=== PATIENT | female | born 1965 | race Caucasian/White ===

== ENCOUNTER 2018-04-20 20:52 | Emergency (ER) ==
[2018-04-20 22:27] LABS: ABSOLUTE BASOPHILS # (AUTO) 0.1 10^3/uL (0.0-0.2); ABSOLUTE EOSINOPHILS # (AUTO) 0.3 10^3/uL (0.0-0.6); ABSOLUTE LYMPHOCYTES (AUTO) 1.8 10^3/uL (0.5-4.7); ABSOLUTE MONOCYTES (AUTO) 0.6 10^3/uL (0.1-1.4); EOSINOPHILS % (AUTO) 3.8 % (0-6); HEMATOCRIT 33.8 % (36.0-47.0); HEMOGLOBIN 10.7 g/dL (12.0-15.5); LYMPHOCYTES % (AUTO) 22.8 % (13-45); MEAN CORPUSCULAR HEMOGLOBIN 21.7 pg (27.0-33.4); MEAN CORPUSCULAR HGB CONC 31.7 g/dL (32.0-36.0); MEAN CORPUSCULAR VOLUME 68 fl (80-97); MONOCYTES % (AUTO) 8.3 % (3-13); PLATELET COUNT 376 10^3/uL (150-450); RED BLOOD COUNT 4.95 10^6/uL (3.72-5.28); RED CELL DISTRIBUTION WIDTH 17.4 % (11.5-14.0); SEGMENTED NEUTROPHILS % (AUTO) 64.1 % (42-78); TOTAL CELLS COUNTED % (AUTO) 100 %; WHITE BLOOD COUNT 7.8 10^3/uL (4.0-10.5)
[2018-04-20 22:45] LABS: ALANINE AMINOTRANSFERASE 23 U/L (9-52); ALBUMIN 3.7 g/dL (3.5-5.0); ALKALINE PHOSPHATASE 64 U/L (38-126); ANION GAP 9 (5-19); ASPARTATE AMINO TRANSFERASE 15 U/L (14-36); BILIRUBIN,DIRECT 0.2 mg/dL (0.0-0.4); BILIRUBIN,TOTAL 0.2 mg/dL (0.2-1.3); BLOOD UREA NITROGEN 20 mg/dL (7-20); CALCIUM 9.6 mg/dL (8.4-10.2); CARBON DIOXIDE 31 mmol/L (22-30); CHLORIDE 107 mmol/L (98-107); GLUCOSE 81 mg/dL (75-110); LIPASE 218.8 U/L (23-300); POTASSIUM 4.1 mmol/L (3.6-5.0); SODIUM 147.2 mmol/L (137-145); TOTAL PROTEIN 6.9 g/dL (6.3-8.2)
== END 2018-04-20 22:15 | disposition left against medical advice (07) ==
LOC: ER 20:52
DX: Z53.21 Procedure and treatment not carried out due to patient leaving prior to being seen by health care provider (principal)
CPT/HCPCS: 36415; 80053; 83690; 85025

== ENCOUNTER 2018-04-23 23:14 | Emergency (ER) | payer SELFPAY ==
[2018-04-24] MEDS ORDERED: MAG HYDROX/AL HYDROX/SIMETH SUSP 30 ML UDCUP PO ONE (02:25)
[2018-04-24] MEDS ORDERED: METOCLOPRAMIDE HCL ORAL SOLN 10 MG/10 ML UDCUP PO ONE (02:25)
[2018-04-24] MEDS ORDERED: FAMOTIDINE 20 MG TABLET PO ONE (02:25)
[2018-04-24] MEDS ORDERED: LIDOCAINE 2% VISCOUS SOLN 20 ML UDCUP PO ONE (02:25)
--- NOTE | 2018-04-24 02:26 | ER Document Report ---
ED General - General Chief Complaint: Abdominal Pain Stated Complaint: ABDOMINAL PAIN Time Seen by Provider: 04/24/18 01:36 Notes: Patient is a 52-year-old female with a past medical history of hypertension, recent ventral hernia repair who presents with several days of progressively worsening upper abdominal pain. She describes this as a burning, aching epigastric abdominal pain worsened by eating. She notes associated nausea and vomiting when the pain becomes severe. Nothing seems to improve the pain other than avoiding food. She denies a long-standing history of similar symptoms in the past. She has not seen her primary doctor or followed up with her surgeon regarding these concerns. She has been able to tolerate fluids without difficulty. She continues to have bowel movements. No fever or constitutional symptoms. TRAVEL OUTSIDE OF THE [place] IN LAST 30 DAYS: No - Related Data Allergies/Adverse Reactions: No Known Allergies Allergy (Unverified 04/20/18 20:55) Past Medical History - General Information source: Patient - Social History Smoking Status: Former Smoker Chew tobacco use (# tins/day): No Frequency of alcohol use: None Drug Abuse: None Lives with: Family Family History: Reviewed & Not Pertinent Patient has suicidal ideation: No Patient has homicidal ideation: No - Past Medical History Cardiac Medical History: Reports: Hx Hypertension Renal/ Medical History: Denies: Hx Peritoneal Dialysis Past Surgical History: Reports: Hx Abdominal Surgery - hernia repair 03/30/18 Review of Systems - Review of Systems Notes: Constitutional: Negative for fever. HENT: Negative for sore throat. Eyes: Negative for visual changes. Cardiovascular: Negative for chest pain. Respiratory: Negative for shortness of breath. Gastrointestinal: Positive for abdominal pain and vomiting Genitourinary: Negative for dysuria. Musculoskeletal: Negative for back pain. Skin: Negative for rash. Neurological: Negative for headaches, weakness or numbness. 10 point ROS negative except as marked above and in HPI. Physical Exam - Vital signs Vitals: Temp Pulse Resp BP Pulse Ox 98.4 F 75 18 229/107 H 98 04/23/18 23:49 04/23/18 23:49 04/23/18 23:49 04/23/18 23:49 04/23/18 23:49 Interpretation: Hypertensive - Patient did not take her home medications today Notes: PHYSICAL EXAMINATION: GENERAL: Well-appearing, well-nourished and in no acute distress. HEAD: Atraumatic, normocephalic. EYES: Pupils equal round and reactive to light, extraocular movements intact, sclera anicteric, conjunctiva are normal. ENT: nares patent, oropharynx clear without exudates. Moist mucous membranes. NECK: Normal range of motion, supple without lymphadenopathy LUNGS: Breath sounds clear to auscultation bilaterally and equal. No wheezes rales or rhonchi. HEART: Regular rate and rhythm without murmurs ABDOMEN: Soft, mild epigastric abdominal tenderness to palpation but no other localized areas of tenderness, normoactive bowel sounds. No guarding, no rebound. No masses appreciated. EXTREMITIES: Normal range of motion, no pitting or edema. No cyanosis. NEUROLOGICAL: No focal neurological deficits. Moves all extremities spontaneously and on command. PSYCH: Normal mood, normal affect. SKIN: Warm, Dry, normal turgor, well-healing low midline surgical incision Course - Re-evaluation Re-evalutation: 04/24/18 02:26 Patient presents with epigastric abdominal pain with associated reflux symptoms most consistent with likely gastritis. Patient has no focal abdominal tenderness on examination other than to the epigastrium. KUB without evidence of bowel obstruction. Right upper quadrant ultrasound does not demonstrate any evidence of acute cholecystitis or cholelithiasis and although the patient does not recall the history, it appears that she is status post cholecystectomy. Lipase is normal. No LFT changes. Based on history and exam, I do not suspect ACS, pulmonary embolus, SBO, mesenteric ischemia, acute pancreatitis, biliary pathology, or an abdominal aortic dissection. Patient has had improvement of symptoms here with a GI cocktail. At this time will discharge with return precautions and follow-up recommendations. Verbal discharge instructions given a the bedside and opportunity for questions given. Medication warnings reviewed. Patient is in agreement with this plan and has verbalized understanding of return precautions and the need for primary care follow-up in the next 24-72 hours. - Vital Signs Vital signs: Temp Pulse Resp BP Pulse Ox 97.9 F 70 16 219/110 H 96 04/24/18 03:34 04/24/18 03:34 04/24/18 03:34 04/24/18 03:34 04/24/18 03:34 - Laboratory Result Diagrams: 04/24/18 02:08 04/24/18 02:08 Laboratory results interpreted by me: 04/24/18 04/24/18 02:08 02:08 Hgb 11.2 L Hct 35.5 L MCV 68 L MCH 21.5 L MCHC 31.6 L RDW 17.2 H Sodium 146.3 H Est GFR (Non-Af Amer) 55 L - Diagnostic Test Radiology reviewed: Image reviewed, Reports reviewed Radiology results interpreted by me: 04/24/18 03:56 Abdominal 2 view: No evidence of perforation or obstruction Discharge - Discharge Clinical Impression: Essential hypertension, Upper abdominal pain Nausea and vomiting Qualifiers: Vomiting type: unspecified Vomiting Intractability: non-intractable Qualified Code(s): R11.2 - Nausea with vomiting, unspecified Condition: Good Disposition: HOME, SELF-CARE Additional Instructions: Your symptoms appear to be most consistent with stomach or upper intestinal irritation. Please begin taking famotidine 40 mg in the morning and 40 mg at night. This medicine can be purchased directly [id number]. You may also take medicine such as Pepto-Bismol or Tums to assist with your pain. Please return to emergency department immediately if you have worsening of your pain, shortness of breath, vomiting, become unable to exert yourself due to pain or difficulty breathing, you pass out, or have any pain that radiates into your arms, jaw, or back. Please also return if you have any additional symptoms that are concerning to you. As we have discussed, the most important thing is lifestyle changes. You need to avoid smoking, sodas, tea, coffee, alcohol, spicy foods, and acidic foods such as citrus fruits, tomato based products, berries, and most fruit juices. Prescriptions: Sucralfate [Carafate 1 gm Tablet] 1 gm PO ACHS #120 tablet
[2018-04-24 02:32] LABS: ABSOLUTE BASOPHILS # (AUTO) 0.1 10^3/uL (0.0-0.2); ABSOLUTE EOSINOPHILS # (AUTO) 0.1 10^3/uL (0.0-0.6); ABSOLUTE LYMPHOCYTES (AUTO) 1.6 10^3/uL (0.5-4.7); ABSOLUTE MONOCYTES (AUTO) 0.6 10^3/uL (0.1-1.4); ABSOLUTE NEUT (AUTO) 6.5 10^3/uL (1.7-8.2); BASOPHILS % (AUTO) 0.8 % (0-2); EOSINOPHILS % (AUTO) 1.5 % (0-6); HEMATOCRIT 35.5 % (36.0-47.0); HEMOGLOBIN 11.2 g/dL (12.0-15.5); LYMPHOCYTES % (AUTO) 17.7 % (13-45); MEAN CORPUSCULAR HEMOGLOBIN 21.5 pg (27.0-33.4); MEAN CORPUSCULAR HGB CONC 31.6 g/dL (32.0-36.0); MEAN CORPUSCULAR VOLUME 68 fl (80-97); MONOCYTES % (AUTO) 7.2 % (3-13); PLATELET COUNT 339 10^3/uL (150-450); RED BLOOD COUNT 5.21 10^6/uL (3.72-5.28); RED CELL DISTRIBUTION WIDTH 17.2 % (11.5-14.0); SEGMENTED NEUTROPHILS % (AUTO) 72.8 % (42-78); TOTAL CELLS COUNTED % (AUTO) 100 %; WHITE BLOOD COUNT 8.9 10^3/uL (4.0-10.5)
[2018-04-24 02:43] LABS: APPEARANCE,URINE CLEAR; BILIRUBIN,URINE NEGATIVE (NEGATIVE); COLOR,URINE YELLOW; GLUCOSE, URINE NEGATIVE (NEGATIVE); KETONES,URINE NEGATIVE (NEGATIVE); LEUKOCYTE ESTERASE,URINE NEGATIVE (NEGATIVE); NITRITE,URINE NEGATIVE (NEGATIVE); PROTEIN,URINE NEGATIVE (NEGATIVE); URINE SPECIFIC GRAVITY 1.014; UROBILINOGEN,URINE NEGATIVE mg/dL (<2.0)
[2018-04-24 02:52] LABS: NEONATAL BILIRUBIN RESULT 0.1 mg/dL (0.1-1.1)
--- NOTE | 2018-04-24 03:09 | RADIOLOGY REPORT (SQ) ---
EXAM DESCRIPTION: XR ABDOMEN 2 VIEWS SUPINE ERECT COMPLETED DATE/TME: 04/24/2018 02:25 CLINICAL HISTORY: Upper abdominal pain. COMPARISON: None. FINDINGS: Upright and supine views of the abdomen. Bowel: No dilated loops of large or small bowel. Peritoneum: No free intraperitoneal air identified. Solid organs: No definite organomegaly. Calcifications: No abnormal calcifications. Bones: No acute osseous abnormalities. Degenerative change of the spine. Other:Prior cholecystectomy. Postoperative change in the left abdomen. IMPRESSION: Nonobstructive bowel gas pattern.
[2018-04-24 03:16] LABS: ALANINE AMINOTRANSFERASE 22 U/L (9-52); ALBUMIN 3.9 g/dL (3.5-5.0); ALKALINE PHOSPHATASE 64 U/L (38-126); ANION GAP 13 (5-19); ASPARTATE AMINO TRANSFERASE 18 U/L (14-36); BILIRUBIN,DIRECT 0.3 mg/dL (0.0-0.4); BILIRUBIN,TOTAL 0.4 mg/dL (0.2-1.3); BLOOD UREA NITROGEN 20 mg/dL (7-20); CALCIUM 9.7 mg/dL (8.4-10.2); CARBON DIOXIDE 29 mmol/L (22-30); CHLORIDE 104 mmol/L (98-107); GLUCOSE 108 mg/dL (75-110); POTASSIUM 3.6 mmol/L (3.6-5.0); SODIUM 146.3 mmol/L (137-145); TOTAL PROTEIN 7.1 g/dL (6.3-8.2)
[2018-04-24 03:35] VITALS: BP 219/110
--- NOTE | 2018-04-24 03:54 | RADIOLOGY REPORT (SQ) ---
EXAM DESCRIPTION: US ABDOMEN LIMITED COMPLETED DATE/TME: 04/24/2018 02:35 CLINICAL HISTORY: upper abdominal pain, vomiting COMPARISON: None. TECHNIQUE: Real-time sonographic images of the right upper abdomen were obtained using a curved multihertz transducer. FINDINGS: Pancreas: The visualized portions of the pancreas are unremarkable. Vascular: The visualized portions of the aorta and IVC are unremarkable. Liver: The liver has normal contour and echogenicity. Hepatopedal flow in the portal vein confirmed with color and spectral Doppler imaging.. The common bile duct measures 0.5 cm. Gallbladder: Prior cholecystectomy. Tiny amount of free fluid in the gallbladder fossa. Right Kidney: The right kidney measures 10.3 cm in length. No hydronephrosis, solid renal mass, or shadowing calculi. IMPRESSION: 1. Prior cholecystectomy. Tiny amount of fluid in the gallbladder fossa.
[2018-04-24] MEDS ORDERED: ONDANSETRON ODT 4 MG TAB (6 TAB/ER DISP) PO PRN (03:57)
== END 2018-04-24 04:20 | disposition home or self-care (01) ==
LOC: ER 23:14
DX: R11.2 Nausea with vomiting, unspecified (principal); R10.10 Upper abdominal pain, unspecified; I10 Essential (primary) hypertension; R10.13 Epigastric pain; Z87.891 Personal history of nicotine dependence
CPT/HCPCS: 99284; 36415; 85025; 80053; 81001; 74019; 76705; J3490

== ENCOUNTER 2018-06-26 06:33 | Emergency (ER) | payer SELFPAY ==
[2018-06-26] MEDS ORDERED: LISINOPRIL 10 MG TABLET PO ONE (07:42)
[2018-06-26 07:48] LABS: ABSOLUTE EOSINOPHILS # (AUTO) 0.2 10^3/uL (0.0-0.6); ABSOLUTE LYMPHOCYTES (AUTO) 1.9 10^3/uL (0.5-4.7); ABSOLUTE MONOCYTES (AUTO) 0.4 10^3/uL (0.1-1.4); ABSOLUTE NEUT (AUTO) 8.5 10^3/uL (1.7-8.2); BASOPHILS % (AUTO) 0.4 % (0-2); EOSINOPHILS % (AUTO) 1.7 % (0-6); HEMATOCRIT 31.7 % (36.0-47.0); HEMOGLOBIN 9.8 g/dL (12.0-15.5); INTERNATIONAL RATION (INR) 1.02; LYMPHOCYTES % (AUTO) 16.9 % (13-45); MEAN CORPUSCULAR HEMOGLOBIN 21.2 pg (27.0-33.4); MEAN CORPUSCULAR HGB CONC 30.9 g/dL (32.0-36.0); MEAN CORPUSCULAR VOLUME 69 fl (80-97); MONOCYTES % (AUTO) 3.9 % (3-13); PARTIAL THROMBOPLASTIN TIME 26.3 SEC (23.5-35.8); PLATELET COUNT 270 10^3/uL (150-450); PROTHROMBIN TIME 13.9 SEC (11.4-15.4); RED BLOOD COUNT 4.63 10^6/uL (3.72-5.28); RED CELL DISTRIBUTION WIDTH 16.7 % (11.5-14.0); SEGMENTED NEUTROPHILS % (AUTO) 77.1 % (42-78); TOTAL CELLS COUNTED % (AUTO) 100 %; WHITE BLOOD COUNT 11.1 10^3/uL (4.0-10.5)
[2018-06-26 07:59] LABS: ALANINE AMINOTRANSFERASE 16 U/L (9-52); ALBUMIN 3.3 g/dL (3.5-5.0); ALKALINE PHOSPHATASE 61 U/L (38-126); ANION GAP 11 (5-19); ASPARTATE AMINO TRANSFERASE 19 U/L (14-36); BILIRUBIN,DIRECT 0.2 mg/dL (0.0-0.4); BILIRUBIN,TOTAL 0.2 mg/dL (0.2-1.3); BLOOD UREA NITROGEN 25 mg/dL (7-20); CALCIUM 8.7 mg/dL (8.4-10.2); CARBON DIOXIDE 25 mmol/L (22-30); CHLORIDE 108 mmol/L (98-107); GLUCOSE 136 mg/dL (75-110); LIPASE 109.7 U/L (23-300); POTASSIUM 3.9 mmol/L (3.6-5.0); SODIUM 144.3 mmol/L (137-145); TOTAL PROTEIN 6.4 g/dL (6.3-8.2)
[2018-06-26] MEDS ORDERED: NORMAL SALINE 1000 ML 1,000 ML IV ONE (08:02)
[2018-06-26] MEDS ORDERED: PANTOPRAZOLE SODIUM 40 MG VIAL IV ONE (08:03)
[2018-06-26] MEDS ORDERED: PANTOPRAZOLE SODIUM 40 MG VIAL IV PRN (08:05)
--- NOTE | 2018-06-26 08:24 | ER Document Report ---
ED GI Bleed / Rectal Pain <MILLIE NEGRETE - Last Filed: 06/26/18 14:42> - General Mode of Arrival: Wheelchair Information source: Patient TRAVEL OUTSIDE OF THE [place] IN LAST 30 DAYS: No - HPI Patient complains to provider of: Bright red bld from rect. Onset: Yesterday Timing/Duration: Worse Quality of pain: No pain Pain Level: Denies Emesis description: Bright red blood Rectal bleeding: Bleeding w/o stool Rectal foreign body: No Associated symptoms: None. denies: Chest pain Exacerbated by: Denies Relieved by: Denies Similar symptoms previously: No Recently seen / treated by doctor: No <MICHAEL URBAN - Last Filed: 06/26/18 19:20> - General Chief Complaint: Rectal Bleeding Stated Complaint: VAGINAL BLEEDING Time Seen by Provider: 06/26/18 07:07 Notes: Patient presents complaining of diarrhea that started yesterday. Patient states that diarrhea worsened today. Patient states she has had 4 episodes that have all been bloody. Patient reports having a toilet full of blood at home. Patient denies any abdominal pain or fever. Patient does report feeling lightheaded. Does state that she had surgery last year for a hernia repair in the incidentally found a tumor. Patient states the tumor was benign. Patient states that she has been seeping blood rectally without having bowel movements. Patient denies any previous history of rectal bleeding. 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 denies: Fever, Recent illness EENT: No symptoms reported Cardiovascular: Lightheaded Respiratory: No symptoms reported. denies: Cough, Short of breath Gastrointestinal: Diarrhea, Nausea, Vomiting, Rectal bleeding. denies: Abdominal pain, Poor appetite Genitourinary: No symptoms reported. denies: Dysuria Female Genitourinary: No symptoms reported Musculoskeletal: No symptoms reported. denies: Back pain Skin: No symptoms reported Hematologic/Lymphatic: No symptoms reported Neurological/Psychological: No symptoms reported <MICHAEL URBAN - Last Filed: 06/26/18 19:20> Physical Exam - General General appearance: Appears well, Alert In distress: None - HEENT Head: Normocephalic, Atraumatic Eyes: Normal Conjunctiva: Normal Eyelashes: Normal Pupils: PERRL Nasal: Normal Mouth/Lips: Normal Mucous membranes: Normal Neck: Normal, Supple. No: Lymphadenopathy - Respiratory Respiratory status: No respiratory distress Chest status: Nontender Breath sounds: Normal. No: Rales, Rhonchi, Stridor, Wheezing Chest palpation: Normal - Cardiovascular Rhythm: Regular Heart sounds: S1 appreciated, S2 appreciated Murmur: No - Abdominal Inspection: Obese Distension: No distension Bowel sounds: Normal Tenderness: Nontender Organomegaly: No organomegaly - Rectal Tenderness: No Stool: Bloody, See lab result Hemorrhoids: None - Back Back: Tender - Lumbar paraspinal tenderness. No: CVA tenderness, Vertebra tenderness - Extremities General upper extremity: Normal inspection, Normal ROM General lower extremity: Normal inspection, Normal ROM - Neurological Neuro grossly intact: Yes Cognition: Normal Sam Coma Scale Eye Opening: Spontaneous Leonardo Coma Scale Verbal: Oriented Leonardo Coma Scale Motor: Obeys Commands Leonardo Coma Scale Total: 15 - Psychological Associated symptoms: Normal affect, Normal mood - Skin Skin Temperature: Warm Skin Moisture: Dry Skin Color: Normal <MICHAEL URBAN - Last Filed: 06/26/18 19:20> - Vital signs Vitals: Pulse Ox 98 06/26/18 07:05 Course - Laboratory Result Diagrams: 06/26/18 07:30 06/26/18 07:30 <MILLIE NEGRETE - Last Filed: 06/26/18 14:42> - Laboratory Result Diagrams: 06/26/18 14:39 06/26/18 07:30 - Diagnostic Test Radiology reviewed: Reports reviewed <WILMARMICHAEL White - Last Filed: 06/26/18 19:20> - Re-evaluation Re-evalutation: 06/26/18 14:42 Transport is at bedside patient is stable for transport to tertiary care facility. (MILLIE NEGRETE) 06/26/18 10:[address] Negrete regarding patient presentation, reviewed CT scan report findings. Recommends consultation with surgery. Consulted with Dr. Oates regarding patient presentation and read Dr. Oates the radiology report. Given that patient recently had abdominal surgery and may possibly be having complications, advises consultation with her surgeon. 06/26/18 10:27 Upon requestioning of patient and her family, patient's family states that her surgery was this year versus last year. Family states that it was about 3 months ago. Called and spoke with the transfer center at [facility] who states that patient did have a ventral hernia repair with bowel resection that was performed on 03/29/2018. Awaiting return call from transfer center. 06/26/18 10:[address] Mayers at [facility] who agrees to accept patient for transfer. Dr. Mayers did review patient's record and states that patient did not have a colonoscopy when she was admitted there in March for her surgery. Patient continues to be poor historian 06/26/18 14:01 Patient resting comfortably, denies complaints at this time. No additional rectal bleeding episodes. 06/26/18 15:00 Patient without any additional episodes of rectal bleeding. Vital signs stable , transport crew here to transfer pt. (MICHAEL URBAN) - Vital Signs Vital signs: Temp Pulse Resp BP Pulse Ox 16 157/87 H 100 06/26/18 14:42 06/26/18 14:42 06/26/18 14:42 - Laboratory Laboratory results interpreted by me: 06/26/18 06/26/18 06/26/18 07:30 07:30 09:23 WBC 11.1 H Hgb 9.8 L Hct 31.7 L MCV 69 L MCH 21.2 L MCHC 30.9 L RDW 16.7 H Absolute Neutrophils 8.5 H Chloride 108 H BUN 25 H Est GFR ( Amer) 57 L Est GFR (Non-Af Amer) 47 L Glucose 136 H Albumin 3.3 L Urine Blood LARGE H 06/26/18 14:39 WBC 15.4 H Hgb 9.4 L Hct 29.8 L MCV 68 L MCH 21.4 L MCHC 31.4 L RDW 16.6 H Absolute Neutrophils Chloride BUN Est GFR ( Amer) Est GFR (Non-Af Amer) Glucose Albumin Urine Blood 06/26/18 14:08 Labs- Entire Visit 06/26/18 06/26/18 06/26/18 07:30 07:30 07:30 WBC 11.1 H RBC 4.63 Hgb 9.8 L Hct 31.7 L MCV 69 L MCH 21.2 L MCHC 30.9 L RDW 16.7 H Plt Count 270 Seg Neutrophils % 77.1 Lymphocytes % 16.9 Monocytes % 3.9 Eosinophils % 1.7 Basophils % 0.4 Absolute Neutrophils 8.5 H Absolute Lymphocytes 1.9 Absolute Monocytes 0.4 Absolute Eosinophils 0.2 Absolute Basophils 0.0 PT 13.9 INR 1.02 APTT 26.3 Sodium 144.3 Potassium 3.9 Chloride 108 H Carbon Dioxide 25 Anion Gap 11 BUN 25 H Creatinine 1.19 Est GFR ( Amer) 57 L Est GFR (Non-Af Amer) 47 L Glucose 136 H Lactic Acid Calcium 8.7 Total Bilirubin 0.2 Direct Bilirubin 0.2 Neonat Total Bilirubin Not Reportable Neonat Direct Bilirubin Not Reportable Neonat Indirect Bili Not Reportable AST 19 ALT 16 Alkaline Phosphatase 61 Total Protein 6.4 Albumin 3.3 L Lipase 109.7 Serum HCG, Qual Urine Color Urine Appearance Urine pH Ur Specific [place] Urine Protein Urine Glucose (UA) Urine Ketones Urine Blood Urine Nitrite Urine Bilirubin Urine Urobilinogen Ur Leukocyte Esterase Urine WBC (Auto) Urine RBC (Auto) Squamous Epi Cells Auto Urine Mucus (Auto) Urine Ascorbic Acid Stool Occult Blood Blood Type Antibody Screen 06/26/18 06/26/18 06/26/18 08:00 08:24 08:24 WBC RBC Hgb Hct MCV MCH MCHC RDW Plt Count Seg Neutrophils % Lymphocytes % Monocytes % Eosinophils % Basophils % Absolute Neutrophils Absolute Lymphocytes Absolute Monocytes Absolute Eosinophils Absolute Basophils PT INR APTT Sodium Potassium Chloride Carbon Dioxide Anion Gap BUN Creatinine Est GFR ( Amer) Est GFR (Non-Af Amer) Glucose Lactic Acid Calcium Total Bilirubin Direct Bilirubin Neonat Total Bilirubin Neonat Direct Bilirubin Neonat Indirect Bili AST ALT Alkaline Phosphatase Total Protein Albumin Lipase Serum HCG, Qual NEGATIVE Urine Color Urine Appearance Urine pH Ur Specific [place] Urine Protein Urine Glucose (UA) Urine Ketones Urine Blood Urine Nitrite Urine Bilirubin Urine Urobilinogen Ur Leukocyte Esterase Urine WBC (Auto) Urine RBC (Auto) Squamous Epi Cells Auto Urine Mucus (Auto) Urine Ascorbic Acid Stool Occult Blood POSITIVE Blood Type B POSITIVE Antibody Screen NEGATIVE 06/26/18 06/26/18 09:23 10:57 WBC RBC Hgb Hct MCV MCH MCHC RDW Plt Count Seg Neutrophils % Lymphocytes % Monocytes % Eosinophils % Basophils % Absolute Neutrophils Absolute Lymphocytes Absolute Monocytes Absolute Eosinophils Absolute Basophils PT INR APTT Sodium Potassium Chloride Carbon Dioxide Anion Gap BUN Creatinine Est GFR ( Amer) Est GFR (Non-Af Amer) Glucose Lactic Acid 1.5 Calcium Total Bilirubin Direct Bilirubin Neonat Total Bilirubin Neonat Direct Bilirubin Neonat Indirect Bili AST ALT Alkaline Phosphatase Total Protein Albumin Lipase Serum HCG, Qual Urine Color YELLOW Urine Appearance SLIGHTLY-CLOUDY Urine pH 6.0 Ur Specific [place] 1.029 Urine Protein NEGATIVE Urine Glucose (UA) NEGATIVE Urine Ketones NEGATIVE Urine Blood LARGE H Urine Nitrite NEGATIVE Urine Bilirubin NEGATIVE Urine Urobilinogen NEGATIVE Ur Leukocyte Esterase NEGATIVE Urine WBC (Auto) 1 Urine RBC (Auto) 1 Squamous Epi Cells Auto 2 Urine Mucus (Auto) RARE Urine Ascorbic Acid NEGATIVE Stool Occult Blood Blood Type Antibody Screen (MICHAEL URBAN) Discharge <MILLIE NEGRETE - Last Filed: 06/26/18 14:42> <MICHAEL URBAN - Last Filed: 06/26/18 19:20> - Discharge Clinical Impression: Rectal bleeding Bowel obstruction Qualifiers: Intestinal obstruction type: unspecified Intestinal obstruction extent: unspecified extent Qualified Code(s): K56.609 - Unspecified intestinal obstruction, unspecified as to partial versus complete obstruction Disposition: [facility]
--- NOTE | 2018-06-26 09:36 | RADIOLOGY REPORT (SQ) ---
EXAM DESCRIPTION: CT ABD/PELVIS WITH IV ONLY COMPLETED DATE/TIME: 06/26/2018 9:03 am REASON FOR STUDY: rectal bleeding COMPARISON: Abdominal ultrasound 04/24/2018 TECHNIQUE: CT scan of the abdomen and pelvis performed using helical scanning technique with dynamic intravenous contrast injection. No oral contrast. Images reviewed with lung, soft tissue, and bone windows. Reconstructed coronal and sagittal MPR images reviewed. Delayed images for evaluation of the urinary system also acquired. All images stored on PACS. All CT scanners at this facility use dose modulation, iterative reconstruction, and/or weight based d osing when appropriate to reduce radiation dose to as low as reasonably achievable (ALARA). [facility]: Dose Right [facility]: CareDose [facility]: Dose Right [facility]: Teradose 4D [facility]: Federated Sample CONTRAST TYPE AND DOSE: contrast/concentration: Isovue 350.00 mg/ml; Total Contrast Delivered: 100.0 ml; Total Saline Delivered: 71.0 ml 100 mL Omnipaque 350- low osmolar. RENAL FUNCTION: BUN: 25 creatinine: 1.19 RADIATION DOSE: CT Rad equipment meets quality standard of care and radiation dose reduction techniq ues were employed. CTDIvol: 13.9 - 17.7 mGy. DLP: 1664 mGy-cm.. LIMITATIONS: None. FINDINGS: LOWER CHEST: Linear atelectasis of the left lingula. Visualized lung bases are otherwise clear. LIVER: Normal size. Minimal intrahepatic ductal dilatation, likely from prior cholecystectomy. Mult iple hypodensities scattered throughout the liver largest measures 2.4 x 1.5 cm. Statistically, thes e most likely represent simple cysts. SPLEEN: Normal size. No focal lesions. PANCREAS: No masses. No significant calcifications. No adjacent inflammation or peripancreatic fluid collections. Pancreatic duct not dilated. GALLBLADDER: Surgically absent. ADRENAL GLANDS: No significant masses or asymmetry. RIGHT KIDNEY AND URETER: No solid masses. No significant calcifications. No hydronephrosis or hydr oureter. LEFT KIDNEY AND URETER: 1.5 x 1.6 cm hypodense lesion of the superolateral renal cortex. Likely repr esenting a simple cyst. No solid masses. No significant calcifications. No hydronephrosis or hyd roureter. AORTA AND VESSELS: No aneurysm. Mild scattered calcified and noncalcified plaque. No dissection. Re nal arteries, SMA, celiac without stenosis. RETROPERITONEUM: No retroperitoneal adenopathy, hemorrhage or masses. BOWEL AND PERITONEAL CAVITY: Small focus of hyperattenuating material within the stomach, likely repr esenting ingested contents. Prominent loops of small bowel of the right abdomen proximal to the post surgical changes of the small bowel within the left mid abdomen. There is some heterogenous hyperatt enuating material within the dependent portion of the area of anastomosis which is unchanged on delay ed imaging, suggestive that this also represents surgical material rather than extravasated contrast. There is traumatic tapering of the small bowel distal to the anastomotic site. Colon is nondilated . Diverticula of the colon. No inflammatory changes to suggest diverticulitis. No intraperitoneal free fluid or free air. APPENDIX: Normal. PELVIS: No mass. No free fluid. Normal bladder. ABDOMINAL WALL: Slight heterogeneity of the midline anterior abdominal wall, postsurgical. BONES: Degenerative disc disease of L4-L5. OTHER: No other significant finding. IMPRESSION: 1. Prominent loops of small bowel in the right abdomen proximal to the postsurgical changes of the sm all bowel within the left mid abdomen with dramatic tapering of the small bowel distal to the anastom otic site. Findings may represent developing ileus or small bowel obstruction. 2. Slightly heterogenous, hyperattenuating material within the dependent portion of the small bowel a nastomotic site which is not change on delayed imaging suggesting that this also represents surgical material rather than extravasated contrast. Difficult to accurately assess without precontrast imagi ng. TECHNICAL DOCUMENTATION: JOB ID: [id number] Quality ID # [id number]: Final reports with documentation of one or more dose reduction techniques (e.g., Au tomated exposure control, adjustment of the mA and/or kV according to patient size, use of iterative reconstruction technique) 2010 [employer]- All Rights Reserved Reading location - IP/workstation name: [email or web address]
[2018-06-26 10:05] LABS: APPEARANCE,URINE SLIGHTLY-CLOUDY; BILIRUBIN,URINE NEGATIVE (NEGATIVE); COLOR,URINE YELLOW; GLUCOSE, URINE NEGATIVE (NEGATIVE); KETONES,URINE NEGATIVE (NEGATIVE); LEUKOCYTE ESTERASE,URINE NEGATIVE (NEGATIVE); NITRITE,URINE NEGATIVE (NEGATIVE); PROTEIN,URINE NEGATIVE (NEGATIVE); URINE SPECIFIC GRAVITY 1.029; UROBILINOGEN,URINE NEGATIVE mg/dL (<2.0)
[2018-06-26 14:54] VITALS: BP 157/87
[2018-06-26 14:56] LABS: HEMATOCRIT 29.8 % (36.0-47.0); HEMOGLOBIN 9.4 g/dL (12.0-15.5); MEAN CORPUSCULAR HEMOGLOBIN 21.4 pg (27.0-33.4); MEAN CORPUSCULAR HGB CONC 31.4 g/dL (32.0-36.0); MEAN CORPUSCULAR VOLUME 68 fl (80-97); PLATELET COUNT 276 10^3/uL (150-450); RED BLOOD COUNT 4.38 10^6/uL (3.72-5.28); RED CELL DISTRIBUTION WIDTH 16.6 % (11.5-14.0); WHITE BLOOD COUNT 15.4 10^3/uL (4.0-10.5)
--- NOTE | 2018-06-26 17:13 | EKG REPORT ---
SEVERITY:- ABNORMAL ECG - SINUS RHYTHM NONSPECIFIC T ABNORMALITIES, LATERAL LEADS : Confirmed by: Matt Zepeda MD 26-Jun-2018 17:12:21
== END 2018-06-26 15:09 | disposition short-term general hospital (02) ==
LOC: ER 06:33
DX: K62.5 Hemorrhage of anus and rectum (principal); K56.609 Unspecified intestinal obstruction, unspecified as to partial versus complete obstruction; R19.7 Diarrhea, unspecified; R42 Dizziness and giddiness; R11.2 Nausea with vomiting, unspecified; I10 Essential (primary) hypertension; Z87.891 Personal history of nicotine dependence
CPT/HCPCS: 93005; 96376; 99285; 96361; 96365; 96366; 86900; 86901; 36415; 86850; 83605; 83690; 84703; 85025; 85027; 85610; 85730; 82272; 80053; 81001; 74177; 93010; S0164; J7030

== ENCOUNTER 2018-08-27 14:45 | Emergency (ER) | payer SELFPAY ==
[2018-08-27] MEDS ORDERED: ONDANSETRON 4 MG TAB.RAPDIS PO ONE (15:09)
[2018-08-27] MEDS ORDERED: CLONIDINE HCL 0.2 MG TABLET PO ONE ×2 (15:09→15:29)
[2018-08-27] MEDS ORDERED: LIDOCAINE 2% VISCOUS SOLN 20 ML UDCUP PO ONE (15:12)
[2018-08-27] MEDS ORDERED: MAG HYDROX/AL HYDROX/SIMETH SUSP 30 ML UDCUP PO ONE (15:12)
[2018-08-27] MEDS ORDERED: SUCRALFATE SUSP 1 GM/10 ML UDCUP PO ONE (15:12)
--- NOTE | 2018-08-27 15:12 | ER Document Report ---
ED GI/ - General Chief Complaint: Abdominal Pain >50 Stated Complaint: ADMONIAL PAIN Time Seen by Provider: 08/27/18 15:05 Mode of Arrival: Ambulatory Information source: Patient Notes: Chief complaint: abdominal pain: History of complain:( obtained from----patient) 53 years old female presents today epigastric burning sensation for the last 2-3 days, loose stools yellow in color and lower abdominal cramps. Nauseous no vomiting. No fever chills. Denies any dysuria frequency or urgency. Denies any chest pain. Denies any fever chills cough or other constitutional symptoms. Onset: As above Duration: Last few days Severity: Mild to moderate Quality: Burning sensation Context: None Exacerbating factor and relieving factors: None REVIEW OF SYSTEMS: CONSTITUTIONAL : Denies fever, chills, or sweats. Denies recent illness. EENT: Denies eye, ear, throat, or mouth pain or symptoms. Denies nasal or sinus congestion or discharge. Denies throat, tongue, or mouth swelling or difficulty swallowing. CARDIOVASCULAR: Denies chest pain. Denies palpitations or racing or irregular heart beat. Denies ankle edema. RESPIRATORY: Denies cough, cold, or chest congestion. Denies shortness of breath, difficulty breathing, or wheezing. GASTROINTESTINAL: Denies distention. Denies nausea, vomiting, or diarrhea. Denies blood in vomitus, stools, or per rectum. Denies black, tarry stools. Denies constipation. GENITOURINARY: Denies difficulty urinating, painful urination, burning, frequency, blood in urine, or discharge. FEMALE GENITOURINARY: Denies vaginal bleeding, heavy or abnormal periods, irregular periods. Denies vaginal discharge or odor. MUSCULOSKELETAL: Denies back or neck pain or stiffness. Denies joint pain or swelling. SKIN: Denies rash, lesions or sores. HEMATOLOGIC : Denies easy bruising or bleeding. LYMPHATIC: Denies swollen, enlarged glands. NEUROLOGICAL: Denies confusion or altered mental status. Denies passing out or loss of consciousness. Denies dizziness or lightheadedness. Denies headache. Denies weakness or paralysis or loss of use of either side. Denies problems with gait or speech. Denies sensory loss, numbness, or tingling. Denies seizures. PSYCHIATRIC: Denies anxiety or stress. Denies depression, suicidal ideation, or homicidal ideation. ALL OTHER SYSTEMS REVIEWED AND NEGATIVE. PHYSICAL EXAMINATION: GENERAL: Well-appearing, well-nourished and in no acute distress. HEAD: Atraumatic, normocephalic. EYES: Pupils equal round and reactive to light, extraocular movements intact, conjunctiva are normal. ENT: Nares patent, oropharynx clear without exudates. Moist mucous membranes. NECK: Normal range of motion, supple without lymphadenopathy LUNGS: Breath sounds clear to auscultation bilaterally and equal. No wheezes rales or rhonchi. HEART: Regular rate and rhythm without murmurs ABDOMEN: Soft, mild epigastric tenderness, nondistended abdomen. No guarding, no rebound. No masses appreciated. Female : deferred Musculoskeletal: Normal range of motion, no pitting or edema. No cyanosis. NEUROLOGICAL: Cranial nerves grossly intact. Normal speech, normal gait. Normal sensory, motor exams PSYCH: Normal mood, normal affect. SKIN: Warm, Dry, normal turgor, no rashes or lesions noted. Dictation was performed using [employer] voice recognition software TRAVEL OUTSIDE OF THE [place] IN LAST 30 DAYS: No - HPI Notes: 08/27/18 15:11 Dictated - Related Data Allergies/Adverse Reactions: oxycodone [From Percocet] Allergy (Verified 08/27/18 14:48) Past Medical History - Social History Smoking Status: Never Smoker Frequency of alcohol use: Rare Drug Abuse: None Lives with: Family Family History: Reviewed & Not Pertinent Patient has suicidal ideation: No Patient has homicidal ideation: No - Past Medical History Cardiac Medical History: Reports: Hx Hypertension Renal/ Medical History: Denies: Hx Peritoneal Dialysis Past Surgical History: Reports: Hx Abdominal Surgery - hernia repair 03/30/18 Review of Systems - Review of Systems Notes: Dictated Physical Exam - Vital signs Vitals: Temp Pulse Resp BP Pulse Ox 98.8 F 80 18 180/93 H 99 08/27/18 14:53 08/27/18 14:53 08/27/18 14:53 08/27/18 14:53 08/27/18 14:53 - Notes Notes: Dictated Course - Vital Signs Vital signs: Temp Pulse Resp BP Pulse Ox 98.8 F 80 18 180/93 H 99 08/27/18 14:53 08/27/18 14:53 08/27/18 14:53 08/27/18 14:53 08/27/18 14:53
[2018-08-27] MEDS ORDERED: CLONIDINE HCL 0.1 MG TABLET PO ONE (15:16)
[2018-08-27 15:49] LABS: ABSOLUTE BASOPHILS # (AUTO) 0.1 10^3/uL (0.0-0.2); ABSOLUTE EOSINOPHILS # (AUTO) 0.1 10^3/uL (0.0-0.6); ABSOLUTE LYMPHOCYTES (AUTO) 1.5 10^3/uL (0.5-4.7); ABSOLUTE MONOCYTES (AUTO) 0.5 10^3/uL (0.1-1.4); ABSOLUTE NEUT (AUTO) 6.8 10^3/uL (1.7-8.2); EOSINOPHILS % (AUTO) 0.8 % (0-6); HEMATOCRIT 32.9 % (36.0-47.0); HEMOGLOBIN 10.3 g/dL (12.0-15.5); LYMPHOCYTES % (AUTO) 16.6 % (13-45); MEAN CORPUSCULAR HEMOGLOBIN 20.1 pg (27.0-33.4); MEAN CORPUSCULAR HGB CONC 31.3 g/dL (32.0-36.0); MONOCYTES % (AUTO) 5.1 % (3-13); PLATELET COUNT 383 10^3/uL (150-450); RED BLOOD COUNT 5.14 10^6/uL (3.72-5.28); SEGMENTED NEUTROPHILS % (AUTO) 76.5 % (42-78); TOTAL CELLS COUNTED % (AUTO) 100 %; WHITE BLOOD COUNT 8.9 10^3/uL (4.0-10.5)
--- NOTE | 2018-08-27 15:58 | RADIOLOGY REPORT (SQ) ---
EXAM DESCRIPTION: ACUTE ABDOMEN SERIES COMPLETED DATE/TIME: 08/27/2018 3:50 pm REASON FOR STUDY: Acute abdominal pain COMPARISON: None. NUMBER OF VIEWS: Three views. TECHNIQUE: Frontal chest, supine abdomen and upright/decubitus abdomen radiographic images acquired. LIMITATIONS: None. FINDINGS: CHEST: Lungs clear of infiltrates. FREE AIR: None. No abnormal gas collections. BOWEL GAS PATTERN: Dilated air-filled loops of small bowel. CALCIFICATIONS: No suspicious calcifications. HARDWARE: None in the abdomen. SOFT TISSUES: No gross mass or suggestion of organomegaly. BONES: No acute fracture. No worrisome bone lesions. OTHER: No other significant finding. IMPRESSION: Likely partial small bowel obstruction. TECHNICAL DOCUMENTATION: JOB ID: [id number] [employer]- All Rights Reserved Reading location - IP/workstation name: [email or web address]
[2018-08-27 16:18] LABS: ANISOCYTOSIS 2+; OVALOCYTES SLIGHT; POIKILOCYTOSIS SLIGHT; TARGET CELLS SLIGHT; TOXIC GRANULATION SLIGHT
[2018-08-27 16:19] LABS: HYPOCHROMASIA 1+; PLATELET COMMENT ADEQUATE
[2018-08-27 16:20] LABS: MEAN CORPUSCULAR VOLUME 64 fl (80-97)
[2018-08-27 17:04] LABS: ALANINE AMINOTRANSFERASE 18 U/L (9-52); ALKALINE PHOSPHATASE 65 U/L (38-126); ANION GAP 7 (5-19); ASPARTATE AMINO TRANSFERASE 23 U/L (14-36); BILIRUBIN,DIRECT 0.1 mg/dL (0.0-0.4); BILIRUBIN,TOTAL 0.6 mg/dL (0.2-1.3); BLOOD UREA NITROGEN 21 mg/dL (7-20); CALCIUM 9.6 mg/dL (8.4-10.2); CARBON DIOXIDE 30 mmol/L (22-30); CHLORIDE 103 mmol/L (98-107); GLUCOSE 116 mg/dL (75-110); LIPASE 45.7 U/L (23-300); TOTAL PROTEIN 7.5 g/dL (6.3-8.2)
[2018-08-27] MEDS ORDERED: NORMAL SALINE 1000 ML 1,000 ML IV ONE ×2 (17:22→19:32)
[2018-08-27] MEDS ORDERED: ONDANSETRON HCL INJ/PF 4 MG/2 ML SDV IV ONE (17:22)
--- NOTE | 2018-08-27 17:24 | ER Document Report ---
ED General - General Chief Complaint: Abdominal Pain >50 Stated Complaint: ADMONIAL PAIN Time Seen by Provider: 08/27/18 15:05 Mode of Arrival: Ambulatory Information source: Patient Notes: This is a 53-year-old female with a history of hypertension the presents to the emergency room with pump periumbilical pain, nausea, vomiting for the last few days. Patient does have a history of a periumbilical hernia repair states that she is had pain ever since that surgery a few years ago. She denies fever. She denies blood in the stool. The patient was given IV fluids and IV antiemetics. She was never given any pain medicines. I discussed the results of the CT scan with her and I gave her the option of coming in for continued IV fluids and bowel rest or going home. She states that she feels good enough to go home. Based upon my exam, I think that is fine. I have given the patient instructions on what to return for. I will send her home with some antiemetics. She does not have a primary care doctor, so I have asked her to return here if she has any problems. In the meantime, I will give her the number for the [facility]. TRAVEL OUTSIDE OF THE U[place] IN LAST 30 DAYS: No - HPI Onset: Last week Onset/Duration: Gradual Quality of pain: Achy Severity: None Pain Level: Denies Associated symptoms: denies: Chest pain, Fever, Shortness of breath Exacerbated by: Denies Relieved by: Denies Similar symptoms previously: Yes Recently seen / treated by doctor: No - Related Data Allergies/Adverse Reactions: oxycodone [From Percocet] Allergy (Verified 08/27/18 14:48) Past Medical History - General Information source: Patient - Social History Smoking Status: Never Smoker Cigarette use (# per day): No Chew tobacco use (# tins/day): No Frequency of alcohol use: Rare Drug Abuse: None Lives with: Family Family History: Reviewed & Not Pertinent Patient has suicidal ideation: No Patient has homicidal ideation: No - Past Medical History Cardiac Medical History: Reports: Hx Hypertension Renal/ Medical History: Denies: Hx Peritoneal Dialysis GI Medical History: Denies: Hx Crohn's Disease, Hx Diverticulitis Psychiatric Medical History: Reports: None Past Surgical History: Reports: Hx Abdominal Surgery - hernia repair 5/22/18 Review of Systems - Review of Systems Constitutional: denies: Chills, Fever EENT: No symptoms reported Cardiovascular: No symptoms reported Respiratory: No symptoms reported Gastrointestinal: See HPI Genitourinary: No symptoms reported Female Genitourinary: No symptoms reported Musculoskeletal: No symptoms reported Skin: No symptoms reported Hematologic/Lymphatic: No symptoms reported Neurological/Psychological: No symptoms reported Physical Exam - Vital signs Vitals: Temp Pulse Resp BP Pulse Ox 98.8 F 80 18 180/93 H 99 08/27/18 14:53 08/27/18 14:53 08/27/18 14:53 08/27/18 14:53 08/27/18 14:53 Notes: Physical exam: GENERAL: Patient is alert and oriented x3, no acute distress. HEAD: Atraumatic, normocephalic. EYES: Pupils equal round and reactive to light, extraocular movements intact, sclera anicteric, conjunctiva are normal. ENT: TMs normal, nares patent, oropharynx clear without exudates. Moist mucous membranes. NECK: Normal range of motion, supple without obvious mass or JVD. LUNGS: Breath sounds clear to auscultation bilaterally and equal. No wheezes rales or rhonchi. HEART: Regular rate and rhythm without murmurs, rubs or gallops. ABDOMEN: Soft, normoactive bowel sounds. She does have tenderness in the mid abdomen without any Schwartz's sign or McBurney point tenderness. No guarding, no rebound. No masses appreciated. EXTREMITIES: Normal range of motion, no pitting or edema. No clubbing or cyanosis. NEUROLOGICAL: Cranial nerves II through XII grossly intact. Normal speech, moving all extremities. PSYCH: Normal mood, normal affect. SKIN: Warm, Dry, normal turgor, no rashes or lesions noted. Course - Re-evaluation Re-evalutation: 08/27/18 21:39 Note: The CT scan shows some dilated loops of bowel suggestive of an ileus with the possibility of an early SBO. On repeat examination of the patient, she is sitting comfortably in the stretcher and smiling. She states she feels much better. On repeat abdominal exam, her abdomen is soft and she has bowel sounds and there is no tenderness. - Vital Signs Vital signs: Temp Pulse Resp BP Pulse Ox 98.8 F 80 18 180/93 H 99 08/27/18 14:53 08/27/18 14:53 08/27/18 14:53 08/27/18 14:53 08/27/18 14:53 - Laboratory Result Diagrams: 08/27/18 15:25 08/27/18 16:30 Laboratory results interpreted by me: 08/27/18 08/27/18 15:25 16:30 Hgb 10.3 L Hct 32.9 L MCV 64 L MCH 20.1 L MCHC 31.3 L RDW 18.0 H BUN 21 H Est GFR (Non-Af Amer) 53 L Glucose 116 H - EKG Interpretation by Me Rate: Normal Rhythm: NSR - EKG shows normal sinus rhythm with a ventricular rate of 64, no acute ST-T wave changes Discharge - Discharge Clinical Impression: Abdominal pain Condition: Stable Disposition: HOME, SELF-CARE Instructions: Abdominal Pain ([facility]), Antinausea Medication ([facility]) Additional Instructions: As we discussed, your labs look quite good today. The CT of the abdomen did show some dilated loops of bowel. It is possible that your symptoms get worse and this could lead to bowel obstruction. I would take it easy over the next few days and drink plenty of fluids and advance her diet slowly. Take the nausea medicine as needed. If you are nausea gets worse or if you develop pain or you think you are getting worse, I would rather you come back to the emergency room early. Otherwise, I left the number for the [facility] who you should follow-up anyway for your blood pressure: They provide good health care at a cheaper [place]. Take the Zofran for nausea: 1-2 tablets every 6 hours as needed. Referrals: [facility] [Provider Group] - Follow up as needed (This is the number for the [facility] who I want you to follow-up with his far as your blood pressure.)
--- NOTE | 2018-08-27 19:30 | EKG REPORT ---
SEVERITY:- BORDERLINE ECG - SINUS RHYTHM BORDERLINE T WAVE ABNORMALITIES ANTEROLATERAL LEADS : Confirmed by: Mtat Zepeda MD 27-Aug-2018 19:29:47
--- NOTE | 2018-08-27 21:06 | RADIOLOGY REPORT (SQ) ---
EXAM DESCRIPTION: CT ABDOMEN PELVIS WITH IV CONTRAST COMPLETED DATE/TME: 08/27/2018 00:00 CLINICAL HISTORY: 53 years, Female, abd pain COMPARISON: EXAM DESCRIPTION: CLINICAL HISTORY: abd pain COMPARISON: None Available TECHNIQUE: Contiguous axial images of the abdomen and pelvis were obtained after the administration of intravenous contrast followed by reconstruction images.This exam was performed according to our departmental dose-optimization program, which includes automated exposure control, adjustment of the mA and/or kV according to patient size and/or use of iterative reconstruction technique. FINDINGS: There are irregular nonspecific low-attenuation lesions of the liver measuring up to approximately 2 cm. Gallbladder is surgically absent. There are postsurgical changes. Loops of mildly to moderately dilated small bowel are seen throughout the abdomen. No sharp transition point is seen. Trace fluid is in the abdomen and pelvis. There is colonic diverticulosis. No diverticulitis. The colon is not dilated. There is soft tissue stranding in the anterior abdominal wall consistent with prior surgery. No evidence of abscess. There is no hydronephrosis. Adrenal glands are within normal limits. Aorta is normal in caliber and tapering. No free air. IMPRESSION: Small bowel dilatation suggests ileus or early or partial obstruction. No clear etiology is seen. Continued clinical follow-up is recommended. TECHNIQUE: Images stored on PACS. All CT scanners at this facility use dose modulation, iterative reconstruction, and/or weight based dosing when appropriate to reduce radiation dose to as low as reasonably achievable (ALARA). [facility]: Dose Right [facility]: CareDose [facility]: Dose Right [facility]: Teradose 4D [facility]: [employer] LIMITATIONS: None. FINDINGS: IMPRESSION: TECHNICAL DOCUMENTATION: Quality ID # [id number]: Final reports with documentation of one or more dose reduction techniques (e.g., Automated exposure control, adjustment of the mA and/or kV according to patient size, use of iterative reconstruction technique) 2010 [employer]- All Rights Reserved
[2018-08-27] MEDS ORDERED: ONDANSETRON ODT 4 MG TAB (6 TAB/ER DISP) PO PRN (21:43)
[2018-08-27 22:06] VITALS: BP 123/68
[2018-08-30 14:22] LABS: PATH REVIEW PATHOLOGIST REVIEWED
== END 2018-08-27 22:07 | disposition home or self-care (01) ==
LOC: ER 14:45
DX: R10.33 Periumbilical pain (principal); R11.2 Nausea with vomiting, unspecified; I10 Essential (primary) hypertension; Z98.890 Other specified postprocedural states; Z87.19 Personal history of other diseases of the digestive system; Z88.5 Allergy status to narcotic agent
CPT/HCPCS: 93005; 99285; 96361; 96374; 36415; 83690; 85025; 80053; 74022; 74177; 93010; S0119; J3490; J2405; J7030

== ENCOUNTER → 2020-09-13 | Outpatient (CLI) | payer SELFPAY ==
[2020-09-13 14:45] VITALS: BP 203/94
--- NOTE | 2020-09-13 14:45 | ER [facility] ASSESSMENT REPORT ---
Intake - In the Last 14 days Have you traveled outside [place]?: No Have you been in close contact with someone CONFIRMED: Yes Worked in Healthcare?: No - Symptoms Subjective Fever([place] feverish): Yes Chills: No Muscule Aches: Yes Runny Nose: No Sore Throat: No Cough (New or worsening chronic cough): No Shortness of breath: Yes Nausea or Vomiting: No Headache: Yes Abdominal Pain: No Diarrhea(3 or more loose stools in last 24 hours): No - Do you have any of the following Chronic lung disease: Asthma or emphysema or COPD: No Cystic Fibrosis: No Diabetes: No High Blood Pressure: Yes Cardiovascular Disease: No Chronic Kidney Disease: No Chronic Liver Disease: No Chronic blood disorder like Sickle Cell Disease: No Weak immune system due to disease or medication: No Neurologic condition that limits movement: No Developmental delay - Moderate to Severe: No Recent (within past 2 weeks) or current : No Morbid Obesity (>100 pounds over ideal weight): Yes - Objective Temperature: 102.4 F Pulse Rate: 91 Respiratory Rate: 18 Blood Pressure: 203/94 O2 Sat by Pulse Oximetry: 93 Objective: Given above, testing performed: If Testing Performed: Test Specimen Type Sent to General - General Information source: Patient Notes: Patient presents to the [facility] for screening for the coronavirus. Patient reports recent exposure to someone who tested positive. Patient reports fever, body aches, shortness of breath and headache for the past 3 days. Patient has underlying history of hypertension and states that she has not had her blood pressure medication today. - Related Data Allergies/Adverse Reactions: oxycodone [From Percocet] Allergy (Verified 08/27/18 14:48) Past Medical History - General Information source: Patient - Social History Smoking Status: Former Smoker Family History: Reviewed & Not Pertinent - Past Medical History Cardiac Medical History: Reports: Hx Hypertension Renal/ Medical History: Denies: Hx Peritoneal Dialysis GI Medical History: Denies: Hx Crohn's Disease, Hx Diverticulitis Past Surgical History: Reports: Hx Abdominal Surgery - hernia repair 03/30/18 Physical Exam - Notes Notes: The patient was evaluated during the global Covid 19 pandemic, and that diagnosis was suspected/considered upon their initial presentation. Their evaluation, treatment and testing was consistent with current guidelines for patients who present with complaints or symptoms that may be related to Covid 19. Full physical exam could not be performed due to covid 19 isolation protocols. Constitutional: Nontoxic appearance, no acute distress Eyes: Nonicteric, extraocular movements intact, sclera clear Cardiovascular: Heart rate and rhythm regular, no JVD Respiratory: Breath sounds clear bilaterally, nonlabored breathing, no use of accessory muscles, no tachypnea Gastrointestinal: Abdomen not distended Muculoskeletal: Moves all extremities well Skin: Normal color Neuro: Awake alert oriented, normal speech Psych: Normal mood and affect Diagnostic Results Laboratory Results: Patient presents with upper respiratory symptoms worrisome for possible Covid 19. Patient is nontoxic in appearance. Patient encouraged to take her blood pressure medication when she gets home. Good return precautions have been discussed with patient, patient verbalized understanding and is agreeable with discharge plan of care at this time. Patient Education/Counseling Counseling/Education: Patient was provided with discharge information including: As a person under investigation for Covid 19, the [facility], division of public health advises you to adhere to the following guidance until your test results are reported to you. If your test result is positive, you will receive additional information from your provider and your local health department at that time. Remain at home until you are cleared by the health provider or public health authorities. Keep a log of visitors to your home, notify any visitors to your home of your isolation status. If you plan to move to a new address or leave the county, notify the local health department in your County. Call your doctor or seek care if you have an urgent medical need. Before seeking medical care, call ahead to get instructions from the provider before arriving at the medical office clinic or hospital. Notify them that you are being tested for the virus that causes Covid 19 so that arrangements can be made, as necessary, to prevent transmission to others in the healthcare setting. Next, notify the local health department in your county. If a medical emergency arises and you need to call 911, inform the first responders that you are being tested for the virus that causes Covid 19. Next, notify the local health department in your county. [facility] Discharge - Discharge Clinical Impression: Encounter for screening laboratory testing for COVID-19 virus Condition: Stable Disposition: Home; Selfcare
[2020-09-13 16:42] LABS: A TYPE INFLUENZA AG NEGATIVE (NEGATIVE); B INFLUENZA AG NEGATIVE (NEGATIVE)
== END ==
LOC: RDC 13:49
PROVIDERS: ATTEND Nurse Practitioner Family
DX: U07.1 COVID-19 (principal); R50.9 Fever, unspecified; M79.10 Myalgia, unspecified site; R06.02 Shortness of breath; R51.9 Headache, unspecified; I10 Essential (primary) hypertension; E66.01 Morbid (severe) obesity due to excess calories; Z88.6 Allergy status to analgesic agent; Z87.891 Personal history of nicotine dependence
CPT/HCPCS: 87070; 87880; 87635; 87804; C9803; 99201; 99211

== ENCOUNTER 2020-09-17 09:41 | Inpatient (IN) | payer SELFPAY ==
[2020-09-17 10:39] LABS: ABSOLUTE LYMPHOCYTES (AUTO) 0.7 10^3/uL (0.5-4.7); ABSOLUTE MONOCYTES (AUTO) 0.3 10^3/uL (0.1-1.4); ABSOLUTE NEUT (AUTO) 3.7 10^3/uL (1.7-8.2); BASOPHILS % (AUTO) 0.5 % (0-2); EOSINOPHILS % (AUTO) 0.2 % (0-6); HEMATOCRIT 34.9 % (36.0-47.0); HEMOGLOBIN 11.2 g/dL (12.0-15.5); LYMPHOCYTES % (AUTO) 15.6 % (13-45); MEAN CORPUSCULAR HEMOGLOBIN 22.6 pg (27.0-33.4); MEAN CORPUSCULAR HGB CONC 32.2 g/dL (32.0-36.0); MEAN CORPUSCULAR VOLUME 70 fl (80-97); MONOCYTES % (AUTO) 6.5 % (3-13); PLATELET COUNT 236 10^3/uL (150-450); RED BLOOD COUNT 4.96 10^6/uL (3.72-5.28); RED CELL DISTRIBUTION WIDTH 15.6 % (11.5-14.0); SEGMENTED NEUTROPHILS % (AUTO) 77.2 % (42-78); TOTAL CELLS COUNTED % (AUTO) 100 %; WHITE BLOOD COUNT 4.7 10^3/uL (4.0-10.5)
[2020-09-17 11:00] LABS: ALBUMIN 3.5 g/dL (3.5-5.0); ALKALINE PHOSPHATASE 44 U/L (38-126); ANION GAP 9 (5-19); ASPARTATE AMINO TRANSFERASE 30 U/L (14-36); BILIRUBIN,DIRECT 0.1 mg/dL (0.0-0.4); BILIRUBIN,TOTAL 0.4 mg/dL (0.2-1.3); BLOOD UREA NITROGEN 14 mg/dL (7-20); CALCIUM 8.4 mg/dL (8.4-10.2); CARBON DIOXIDE 27 mmol/L (22-30); CHLORIDE 104 mmol/L (98-107); GLUCOSE 125 mg/dL (75-110); POTASSIUM 3.8 mmol/L (3.6-5.0); TOTAL PROTEIN 6.5 g/dL (6.3-8.2)
--- NOTE | 2020-09-17 11:19 | RADIOLOGY REPORT (SQ) ---
EXAM DESCRIPTION: CHEST SINGLE VIEW IMAGES COMPLETED DATE/TIME: 09/17/2020 10:45 am REASON FOR STUDY: sob/+ covid COMPARISON: AP chest 08/27/2018 EXAM PARAMETERS: NUMBER OF VIEWS: One view. TECHNIQUE: Single frontal radiographic view of the chest acquired. RADIATION DOSE: NA LIMITATIONS: None. FINDINGS: LUNGS AND PLEURA: Patchy bilateral basilar peripheral airspace disease worrisome for viral pneumonia. No pleural effusion. No pneumothorax. MEDIASTINUM AND HILAR STRUCTURES: No masses. Contour normal. HEART AND VASCULAR STRUCTURES: Heart normal in size. Normal vasculature. BONES: No acute findings. HARDWARE: Clips right upper quadrant post cholecystectomy OTHER: No other significant finding. IMPRESSION: Patchy bilateral basilar peripheral airspace disease worrisome for viral pneumonia TECHNICAL DOCUMENTATION: JOB ID: [id number] 2010 [employer]- All Rights Reserved Reading location - IP/workstation name: [email or web address]
[2020-09-17 11:48] LABS: IRON < 10.1 ug/dL (37-170)
--- NOTE | 2020-09-17 11:55 | ER Document Report ---
ED General - General Chief Complaint: Shortness Of Breath Stated Complaint: PAIN WHEN BREATHING Time Seen by Provider: 09/17/20 10:03 Mode of Arrival: Ambulatory Information source: Patient TRAVEL OUTSIDE OF THE [place] IN LAST 30 DAYS: No - HPI Notes: Patient presents complaining of shortness of breath. States has been going on for approximately 3 to 4 days. Patient states it is worse with exertion and better with rest. Symptoms are constant and severe. She also has a nonproductive cough and she has had fever and chills. She states she did recent ly have a Covid test but does not know the results yet. She is also been having some chest pain that has been intermittent and made worse with coughing. She denies any diabetes but she does have high blood pressure. The chest pain is been sharp and crampy. No significant radiation of the pain. - Related Data Allergies/Adverse Reactions: oxycodone [From Percocet] Allergy (Verified 08/27/18 14:48) Past Medical History - General Information source: Patient - Social History Smoking Status: Former Smoker Chew tobacco use (# tins/day): No Frequency of alcohol use: None Drug Abuse: None Family History: Reviewed & Not Pertinent - Past Medical History Cardiac Medical History: Reports: Hx Hypertension Renal/ Medical History: Denies: Hx Peritoneal Dialysis GI Medical History: Denies: Hx Crohn's Disease, Hx Diverticulitis Past Surgical History: Reports: Hx Abdominal Surgery - hernia repair 03/30/18 Review of Systems - Review of Systems Constitutional: Chills, Fever, Malaise, Weakness Cardiovascular: Chest pain. denies: Palpitations Respiratory: Cough, Short of breath -: Yes All other systems reviewed and negative Physical Exam - Vital signs Vitals: Pulse Resp BP Pulse Ox 84 21 H 188/122 H 99 09/17/20 10:23 09/17/20 10:23 09/17/20 10:23 09/17/20 10:23 Interpretation: Hypertensive - General General appearance: Appears well, Alert In distress: None - HEENT Head: Normocephalic, Atraumatic Eyes: Normal Pupils: PERRL - Respiratory Respiratory status: No respiratory distress Breath sounds: Wheezing - Per nursing exam - Cardiovascular Rhythm: Regular Notes: No JVD - Abdominal Inspection: Normal Distension: No distension - Back Back: Normal - Extremities General upper extremity: Normal inspection, Normal color, Normal ROM General lower extremity: Normal inspection, Normal color, Normal ROM. No: Jorje's sign - Neurological Neuro grossly intact: Yes Cognition: Normal Orientation: AAOx4 Zeigler Coma Scale Eye Opening: Spontaneous Zeigler Coma Scale Verbal: Oriented Zeigler Coma Scale Motor: Obeys Commands Zeigler Coma Scale Total: 15 Speech: Normal - Psychological Associated symptoms: Normal affect, Normal mood - Skin Skin Moisture: Dry Skin Color: Normal Course - Re-evaluation Re-evalutation: 09/17/20 11:58 Patient presents with symptoms consistent with Covid. We did confirm that she has had a positive Covid test. Patient's x-ray is also consistent with Covid. Patient has some new EKG changes but does not have ischemic pain it is mainly pleuritic pain. At this time patient be admitted to the hospital for evaluation and treatment of the Covid pneumonia and the EKG changes will be further pursued if patient develops ischemic pain. The patient was evaluated during a global COVID-19 pandemic and that diagnosis was suspected/considered upon their initial presentation. Their evaluation, treatment and testing was consistent with current guidelines for patients who present with complaints or symptoms and may be related to COVID-19. - Vital Signs Vital signs: Temp Pulse Resp BP Pulse Ox 84 21 H 188/122 H 99 09/17/20 10:23 09/17/20 10:23 09/17/20 10:23 09/17/20 10:23 - Laboratory Result Diagrams: 09/17/20 10:04 09/17/20 10:04 Laboratory results interpreted by me: 09/17/20 09/17/20 09/17/20 10:04 10:04 10:04 Hgb 11.2 L Hct 34.9 L MCV 70 L MCH 22.6 L RDW 15.6 H D-Dimer 0.56 H Est GFR (MDRD) Non-Af 52 L Glucose 125 H Iron < 10.1 L Lactate Dehydrogenase 350 H - Diagnostic Test Radiology reviewed: Image reviewed, Reports reviewed - EKG Interpretation by Pr EKG shows normal: Sinus rhythm Rate: Normal - 78 Rhythm: NSR Bastian/QRS: Left axis deviation Discharge - Discharge Clinical Impression: Pneumonia due to COVID-19 virus Condition: Serious Disposition: ADMITTED INPATIENT Admitting Provider: Jez (Hospitalist) David davidson to admit Unit Admitted: Medical Floor
[2020-09-17] MEDS ORDERED: AZITHROMYCIN 250 MG TABLET PO ONE (12:57)
[2020-09-17] MEDS ORDERED: ACETAMINOPHEN 325 MG TABLET PO PRN (12:57)
[2020-09-17] MEDS ORDERED: ALBUTEROL SULFATE 0.083% NEB 2.5 MG/3 ML AMPUL NEB PRN (12:57)
[2020-09-17] MEDS ORDERED: MAGNESIUM HYDROXIDE SUSP 30 ML UDCUP PO PRN (13:07)
[2020-09-17] MEDS ORDERED: ONDANSETRON HCL INJ/PF 4 MG/2 ML SDV IV PRN (13:07)
[2020-09-17] MEDS ORDERED: MAG HYDROX/AL HYDROX/SIMETH SUSP 30 ML UDCUP PO PRN (13:07)
--- NOTE | 2020-09-17 13:46 | PDOC H&P ---
History of Present Illness Admission Date/PCP: 09/17/20 12:27 History of Present Illness: ANA M ANNE is a 55 year old female with a past medical history significant for hypertension and obesity who tested COVID-19 positive on 09/13/2020. She reports that she continues to run daily fevers (T-max 102), with worsening dyspnea at rest, nonproductive cough, pleuritic chest pain, and diarrhea. She also confirms loss of taste and smell and a sore throat. Evaluation in the emergency department revealed fever 100.1, hypertension (193/98) tachypnea (24) and SPO2 92% on room air. She was found to have iron deficiency anemia (hemoglobin 11.2; iron <10, ferritin 109), Elevated D-dimer 0.56, and elevated LDH (350) troponin was normal. EKG showed inverted T waves to the lateral leads. Chest x-ray reveals bilateral patchy infiltrates consistent with viral infection. She is referred to the hospitalist service for further evaluation and management of the above-stated complaints findings. Past Medical History Cardiac Medical History: Reports: Hypertension Denies: Congestive Heart Failure, Coronary Artery Disease, Myocardial Infarction Pulmonary Medical History: Reports: None EENT Medical History: Reports: None Neurological Medical History: Reports: None Endocrine Medical History: Reports: Obesity Denies: Diabetes Mellitus Type 2, Hypothyroidism Renal/ Medical History: Reports: None Malignancy Medical History: Reports: None GI Medical History: Reports: None Denies: Crohn's Disease, Diverticulitis Musculoskeltal Medical History: Reports: None Skin Medical History: Reports: None Psychiatric Medical History: Reports: None Traumatic Medical History: Reports: None Hematology: Reports: None Social History Information Source: Patient Lives with: Family Smoking Status: Former Smoker Electronic Cigarette use?: No Frequency of Alcohol Use: None Hx Recreational Drug Use: No Hx Prescription Drug Abuse: No - Advance Directive Resuscitation Status: Do Not Resuscitate Family History Family History: Reviewed & Not Pertinent Parental Family History Reviewed: Yes Children Family History Reviewed: Yes Sibling(s) Family History Reviewed.: Yes Medication/Allergy Allergies/Adverse Reactions: oxycodone [From Percocet] Allergy (Verified 08/27/18 14:48) Review of Systems Constitutional: PRESENT: anorexia, chills, fatigue, fever(s), headache(s), weakness. ABSENT: weight gain, weight loss Eyes: ABSENT: visual disturbances Ears: ABSENT: hearing changes Cardiovascular: PRESENT: dyspnea on exertion. ABSENT: chest pain, edema, orthr opnea, palpitations Respiratory: PRESENT: cough, dyspnea. ABSENT: hemoptysis Gastrointestinal: PRESENT: diarrhea. ABSENT: abdominal pain, constipation, hematemesis, hematochezia, nausea, vomiting Genitourinary: ABSENT: dysuria, hematuria Musculoskeletal: ABSENT: joint swelling Integumentary: ABSENT: rash, wounds Neurological: ABSENT: abnormal gait, abnormal speech, confusion, dizziness, focal weakness, syncope Psychiatric: ABSENT: anxiety, depression, homidical ideation, suicidal ideation Endocrine: ABSENT: cold intolerance, heat intolerance, polydipsia, polyuria Hematologic/Lymphatic: ABSENT: easy bleeding, easy bruising Physical Exam Vital Signs: Temp Pulse Resp BP Pulse Ox 100.1 F 84 13 150/89 H 93 09/17/20 10:01 09/17/20 10:23 09/17/20 12:01 09/17/20 12:01 09/17/20 12:01 Intake & Output 09/16/20 09/17/20 09/18/20 06:59 06:59 06:59 Weight 107.139 kg General appearance: PRESENT: no acute distress, cooperative, morbidly obese, w ell-developed, well-nourished, other - Acutely ill-appearing Head exam: PRESENT: atraumatic, normocephalic Eye exam: PRESENT: conjunctiva pink, EOMI, PERRLA. ABSENT: scleral icterus Mouth exam: PRESENT: dry mucosa, tongue midline Neck exam: ABSENT: carotid bruit, JVD, lymphadenopathy, thyromegaly Respiratory exam: PRESENT: clear to auscultation shauna, symmetrical, tachypnea, unlabored. ABSENT: rales, rhonchi, wheezes Cardiovascular exam: PRESENT: RRR, +S1, +S2. ABSENT: diastolic murmur, rubs, systolic murmur Pulses: PRESENT: normal dorsalis pedis pul Vascular exam: PRESENT: normal capillary refill GI/Abdominal exam: PRESENT: normal bowel sounds, soft. ABSENT: tenderness Rectal exam: PRESENT: deferred Extremities exam: PRESENT: full ROM. ABSENT: calf tenderness, clubbing, pedal edema Musculoskeletal exam: PRESENT: ambulatory Neurological exam: PRESENT: alert, awake, oriented to person, oriented to place, oriented to time, oriented to situation, CN II-XII grossly intact, other. ABSENT: motor sensory deficit Psychiatric exam: PRESENT: appropriate affect, normal mood. ABSENT: homicidal ideation, suicidal ideation Skin exam: PRESENT: dry, intact, warm. ABSENT: cyanosis, rash Results Laboratory Results: 09/17/20 10:04 09/17/20 10:04 09/17/20 09/17/20 10:04 10:04 WBC 4.7 RBC 4.96 Hgb 11.2 L Hct 34.9 L MCV 70 L MCH 22.6 L MCHC 32.2 RDW 15.6 H Plt Count 236 Seg Neutrophils % 77.2 Sodium 140.0 Potassium 3.8 Chloride 104 Carbon Dioxide 27 Anion Gap 9 BUN 14 Creatinine 1.09 Est GFR ( Amer) > 60 Glucose 125 H Calcium 8.4 Iron < 10.1 L Ferritin 109.00 Total Bilirubin 0.4 AST 30 Alkaline Phosphatase 44 Total Protein 6.5 Albumin 3.5 09/17/20 10:04 Troponin I < 0.012 Impressions: Chest X-Ray 09/17/20 10:14 IMPRESSION: Patchy bilateral basilar peripheral airspace disease worrisome for viral pneumonia Assessment and Plan - Diagnosis (1) Pneumonia due to COVID-19 virus Is this a current diagnosis for this admission?: Yes Plan: COVID 19 positive 09/13/20 CXR shows bilateral patchy infiltrates D. dimer 0.56, LDH 350, Ferritin 109 Provide supplemental oxygen as needed maintain saturations greater than 89%. As needed nebulizer treatments. PO azithromycin x 5 days IV dexamethasone. Convalescent plasma. Does not meet criteria for remdesivir at this time. Patient is maintaining oxygen saturations while on room air. Zinc, vitamin D, vitamin C, and melatonin supplementation. Encourage pulmonary toilet. Isolation precautions. (2) Diarrhea due to COVID-19 Is this a current diagnosis for this admission?: Yes Plan: Gentle IV fluids. Supportive care. (3) Dehydration Is this a current diagnosis for this admission?: Yes Plan: Dehydration on clinical exam; dry mucous membranes, dry/flaking skin, poor skin turgor. Secondary to diarrhea and poor oral intake. Gentle IVF. Encourage po fluids. (4) HTN (hypertension) Is this a current diagnosis for this admission?: Yes Plan: Patient reports that she is on antihypertensive medications. She does not know the name of her medications. She recently moved and ran out several weeks ago. Will start on lisinopril. IV lopressor prn Cardiac diet. (5) Obese Is this a current diagnosis for this admission?: Yes Plan: Lifestyle modification and dietary discretion advised. Cardiac diet. (6) Anemia Qualifiers: Anemia type: iron deficiency Is this a current diagnosis for this admission?: Yes Plan: Anemia panel reveals iron deficiency Iron <10, ferritin 109 IV feraheme today - Time Time Spent with patient: 35 or more minutes Medications reviewed and adjusted accordingly: Yes Anticipated Discharge Disposition: Home, Self Care Anticipated Discharge Timeframe: undetermined
[2020-09-17] MEDS ORDERED: LISINOPRIL 10 MG TABLET PO ONE (14:00)
[2020-09-17] MEDS ORDERED: FERUMOXYTOL 510 MG in NORMAL SALINE 100 ML IV ONE (14:30)
[2020-09-17 16:17] LABS: ARTERIAL BLOOD BASE EXCESS 2.1 mmol/L; ARTERIAL BLOOD H2CO3 1.18 mmol/L (1.05-1.35); ARTERIAL BLOOD HCO3 26.3 mmol/L (20-24); ARTERIAL BLOOD O2 SATURATION 92.6 % (94-98); ARTERIAL BLOOD PCO2 39.2 mmHg (35-45); ARTERIAL BLOOD PH 7.44 (7.35-7.45); ARTERIAL BLOOD PO2 61.6 mmHg (80-100); ARTERIAL BLOOD TOTAL CO2 27.5 mmol/L (21-25)
[2020-09-17 16:19] LABS: ARTERIAL BLOOD FIO2 2L
[2020-09-17] MEDS: ASCORBIC ACID 500 MG TABLET PO SCH (18:51)
[2020-09-17] MEDS: METOPROLOL TARTRATE PF/INJ 5 MG/5 ML SDV IV PRN (21:44)
[2020-09-17] MEDS: MELATONIN 3 MG TABLET PO SCH (21:45)
--- NOTE | 2020-09-17 22:55 | EKG REPORT ---
SEVERITY:- ABNORMAL ECG - SINUS RHYTHM BORDERLINE LEFT AXIS DEVIATION ABNORMAL T, CONSIDER ISCHEMIA, LATERAL LEADS : Confirmed by: Milagros Paredes 17-Sep-2020 22:54:07
[2020-09-18 05:54] LABS: ABSOLUTE LYMPHOCYTES (AUTO) 1.1 10^3/uL (0.5-4.7); ABSOLUTE MONOCYTES (AUTO) 0.4 10^3/uL (0.1-1.4); ABSOLUTE NEUT (AUTO) 3.6 10^3/uL (1.7-8.2); BASOPHILS % (AUTO) 0.7 % (0-2); EOSINOPHILS % (AUTO) 0.3 % (0-6); HEMATOCRIT 33.5 % (36.0-47.0); HEMOGLOBIN 10.7 g/dL (12.0-15.5); LYMPHOCYTES % (AUTO) 21.6 % (13-45); MEAN CORPUSCULAR HEMOGLOBIN 22.5 pg (27.0-33.4); MEAN CORPUSCULAR VOLUME 70 fl (80-97); MONOCYTES % (AUTO) 7.6 % (3-13); PLATELET COUNT 211 10^3/uL (150-450); RED BLOOD COUNT 4.78 10^6/uL (3.72-5.28); RED CELL DISTRIBUTION WIDTH 15.4 % (11.5-14.0); SEGMENTED NEUTROPHILS % (AUTO) 69.8 % (42-78); TOTAL CELLS COUNTED % (AUTO) 100 %; WHITE BLOOD COUNT 5.2 10^3/uL (4.0-10.5)
[2020-09-18 05:57] LABS: ANION GAP 8 (5-19); BLOOD UREA NITROGEN 10 mg/dL (7-20); CALCIUM 9.2 mg/dL (8.4-10.2); CARBON DIOXIDE 27 mmol/L (22-30); CHLORIDE 102 mmol/L (98-107); CHOLESTEROL 208.69 mg/dL (0-200); GLUCOSE 117 mg/dL (75-110); POTASSIUM 4.3 mmol/L (3.6-5.0); TRIGLYCERIDES 243 mg/dL (<150); VLDL CHOLESTEROL 48.6 mg/dL (10-31)
[2020-09-18 06:03] LABS: DIRECT LDL 143 mg/dL (<100)
[2020-09-18] MEDS: NORMAL SALINE 1000 ML 1,000 ML IV PRN ×2 (07:53→20:05)
[2020-09-18] MEDS ORDERED: LISINOPRIL 10 MG TABLET PO SCH (10:00)
[2020-09-18] MEDS: DEXAMETHASONE SOD PHOS INJ 10 MG/1 ML VIAL IV SCH (10:13)
[2020-09-18] MEDS: ENOXAPARIN SODIUM INJ 40 MG/0.4 ML DISP.SYRIN SUBCUT SCH (10:13)
[2020-09-18] MEDS: ZINC SULFATE 220 MG CAPSULE PO SCH (10:14)
[2020-09-18] MEDS: ASCORBIC ACID 500 MG TABLET PO SCH ×2 (10:14→17:00)
[2020-09-18] MEDS: CHOLECALCIFEROL (D3) 1,000 UNIT (25 MCG) TABLET PO SCH (10:14)
[2020-09-18] MEDS: AZITHROMYCIN 250 MG TABLET PO SCH (10:14)
[2020-09-18] MEDS: ASPIRIN 81 MG TABLET, ENT COATED PO SCH (10:14)
--- NOTE | 2020-09-18 12:04 | PDOC PROGRESS REPORT ---
Subjective Date:: 09/18/20 Subjective:: As per admitting physician's note ANA M ANNE is a 55 year old female with a past medical history significant for hypertension and obesity who tested COVID- 19 positive on 09/13/2020. She reports that she continues to run daily fevers (T-max 102), with worsening dyspnea at rest, nonproductive cough, pleuritic chest pain, and diarrhea. She also confirms loss of taste and smell and a sore throat. Evaluation in the emergency department revealed fever 100.1, hypertension (193/9 8) tachypnea (24) and SPO2 92% on room air. She was found to have iron deficiency anemia (hemoglobin 11.2; iron <10, ferritin 109), Elevated D-dimer 0.56, and elevated LDH (350) troponin was normal. EKG showed inverted T waves to the lateral leads. Chest x-ray reveals bilateral patchy infiltrates consistent with viral infection. 09/18/2020. No acute events overnight. Patient reporting significant improvement of her symptoms, diarrhea has resolved, shortness of breath is improving, currently on 3 L nasal cannula, denies any fever, chills, nausea, vomiting. If could be weaned off of oxygen today could potentially be discharged home tomorrow. Reason For Visit: COVID PNEUMONIA Physical Exam Vital Signs: Temp Pulse Resp BP Pulse Ox 99.5 F 78 18 148/70 H 95 09/18/20 07:14 09/18/20 07:14 09/18/20 07:14 09/18/20 07:14 09/18/20 07:14 Intake & Output 09/17/20 09/18/20 09/19/20 06:59 06:59 06:59 Intake Total 581 Output Total 0 Balance 581 Weight 108.3 kg General appearance: PRESENT: no acute distress, morbidly obese Head exam: PRESENT: atraumatic, normocephalic Neck exam: ABSENT: carotid bruit, JVD, lymphadenopathy, thyromegaly Respiratory exam: PRESENT: clear to auscultation shauna. ABSENT: rales, rhonchi, wheezes Cardiovascular exam: PRESENT: RRR. ABSENT: diastolic murmur, rubs, systolic murmur GI/Abdominal exam: PRESENT: normal bowel sounds, soft. ABSENT: distended, guarding, mass, organolmegaly, rebound, tenderness Neurological exam: PRESENT: alert, awake, oriented to person, oriented to place, oriented to time, oriented to situation, CN II-XII grossly intact. ABSENT: motor sensory deficit Results Laboratory Results: 09/18/20 04:20 09/18/20 04:20 09/17/20 09/17/20 09/18/20 14:10 15:45 04:20 WBC 5.2 RBC 4.78 Hgb 10.7 L Hct 33.5 L MCV 70 L MCH 22.5 L MCHC 32.0 RDW 15.4 H Plt Count 211 Seg Neutrophils % 69.8 Carbonic Acid 1.18 HCO3/H2CO3 Ratio 22:1 ABG pH 7.44 ABG pCO2 39.2 ABG pO2 61.6 L ABG HCO3 26.3 H ABG O2 Saturation 92.6 L ABG Base Excess 2.1 FiO2 2L Sodium Potassium Chloride Carbon Dioxide Anion Gap BUN Creatinine Est GFR ( Amer) Glucose Calcium Triglycerides Cholesterol LDL Cholesterol Direct VLDL Cholesterol HDL Cholesterol Blood Type B POSITIVE Antibody Screen NEGATIVE 09/18/20 04:20 WBC RBC Hgb Hct MCV MCH MCHC RDW Plt Count Seg Neutrophils % Carbonic Acid HCO3/H2CO3 Ratio ABG pH ABG pCO2 ABG pO2 ABG HCO3 ABG O2 Saturation ABG Base Excess FiO2 Sodium 136.5 L Potassium 4.3 Chloride 102 Carbon Dioxide 27 Anion Gap 8 BUN 10 Creatinine 0.69 Est GFR ( Amer) > 60 Glucose 117 H Calcium 9.2 Triglycerides 243 H Cholesterol 208.69 H LDL Cholesterol Direct 143 H VLDL Cholesterol 48.6 H HDL Cholesterol 34 L Blood Type Antibody Screen 09/17/20 09/17/20 09/17/20 10:04 18:55 22:11 Troponin I < 0.012 < 0.012 < 0.012 Impressions: Chest X-Ray 09/17/20 10:14 IMPRESSION: Patchy bilateral basilar peripheral airspace disease worrisome for viral pneumonia Assessment and Plan - Diagnosis (1) Pneumonia due to COVID-19 virus Is this a current diagnosis for this admission?: Yes Plan: COVID 19 positive 09/13/20 CXR on admission showed bilateral patchy infiltrates On admission D. dimer 0.56, LDH 350, Ferritin 109 Improving. No leukocytosis. Afebrile. SPO2 WNL on 3 to 3.5 L nasal cannula. Continue duo nebs, p.o. steroids, p.o. antibiotics, pulmonary toileting, supplemental oxygen, zinc, vitamin D, vitamin C, and melatonin supplementation. Encourage pulmonary toilet. Isolation precautions. Convalescent plasma has been ordered but unfortunately will not be available several days. Does not meet criteria for remdesivir at this time as per previous physician notes. (2) Diarrhea due to COVID-19 Is this a current diagnosis for this admission?: Yes Plan: Resolved. Monitor volume status. Monitor electrolytes and replace as needed. (3) HTN (hypertension) Is this a current diagnosis for this admission?: Yes Plan: Euvolemic. Improving. Not optimized. Patient reports that she is on antihypertensive medications. She does not know the name of her medications. She recently moved and ran out several weeks ago. Continue continue lisinopril, monitor vitals, adjust dosage as needed. Outpatient PCP follow-up for readjustment of her medication. Patient may benefit from weight loss, diet and lifestyle modification. Patient will also benefit from outpatient nocturnal polysomnography to rule out obstructive sleep apnea. (4) Obese Is this a current diagnosis for this admission?: Yes (5) Anemia Qualifiers: Anemia type: iron deficiency Is this a current diagnosis for this admission?: Yes Plan: Anemia panel reveals iron deficiency Iron <10, ferritin 109 IV feraheme today (6) Dehydration Is this a current diagnosis for this admission?: Yes Plan: Volume replete. Continue IV fluids, encourage p.o. intake. - Time Time Spent with patient: 35 or more minutes Anticipated Discharge Disposition: Home, Self Care Anticipated Discharge Timeframe: within 24 hours
--- NOTE | 2020-09-18 17:49 | EKG REPORT ---
SEVERITY:- ABNORMAL ECG - SINUS RHYTHM BORDERLINE LEFT AXIS DEVIATION NONSPECIFIC T ABNORMALITIES, ANT-LAT LEADS : Confirmed by: Milagros Paredes 18-Sep-2020 17:48:35
[2020-09-18] MEDS: ATORVASTATIN CALCIUM 20 MG TABLET PO SCH (21:26)
[2020-09-18] MEDS: MELATONIN 3 MG TABLET PO SCH (21:26)
[2020-09-18] MEDS: METOPROLOL TARTRATE PF/INJ 5 MG/5 ML SDV IV PRN (23:56)
[2020-09-19 06:02] LABS: ABSOLUTE MONOCYTES (AUTO) 0.5 10^3/uL (0.1-1.4); ABSOLUTE NEUT (AUTO) 4.9 10^3/uL (1.7-8.2); BASOPHILS % (AUTO) 0.5 % (0-2); EOSINOPHILS % (AUTO) 0.1 % (0-6); HEMATOCRIT 31.5 % (36.0-47.0); HEMOGLOBIN 10.2 g/dL (12.0-15.5); LYMPHOCYTES % (AUTO) 15.4 % (13-45); MEAN CORPUSCULAR HEMOGLOBIN 22.5 pg (27.0-33.4); MEAN CORPUSCULAR HGB CONC 32.3 g/dL (32.0-36.0); MEAN CORPUSCULAR VOLUME 70 fl (80-97); PLATELET COUNT 225 10^3/uL (150-450); RED BLOOD COUNT 4.52 10^6/uL (3.72-5.28); RED CELL DISTRIBUTION WIDTH 15.6 % (11.5-14.0); TOTAL CELLS COUNTED % (AUTO) 100 %; WHITE BLOOD COUNT 6.5 10^3/uL (4.0-10.5)
[2020-09-19] MEDS: NORMAL SALINE 1000 ML 1,000 ML IV PRN (06:15)
[2020-09-19 06:24] LABS: ALBUMIN 3.2 g/dL (3.5-5.0); ALKALINE PHOSPHATASE 40 U/L (38-126); ANION GAP 7 (5-19); ASPARTATE AMINO TRANSFERASE 26 U/L (14-36); BILIRUBIN,DIRECT 0.2 mg/dL (0.0-0.4); BILIRUBIN,TOTAL 0.5 mg/dL (0.2-1.3); BLOOD UREA NITROGEN 14 mg/dL (7-20); CALCIUM 8.8 mg/dL (8.4-10.2); CARBON DIOXIDE 26 mmol/L (22-30); CHLORIDE 108 mmol/L (98-107); GLUCOSE 108 mg/dL (75-110); POTASSIUM 4.1 mmol/L (3.6-5.0); TOTAL PROTEIN 6.2 g/dL (6.3-8.2)
[2020-09-19 06:41] LABS: FREE T4 (FREE THYROXINE) 1.1 ng/dL (0.78-2.19)
[2020-09-19 06:55] LABS: THYROID STIMULATING HORMONE 0.81 uIU/mL (0.47-4.68)
[2020-09-19] MEDS ORDERED: INFLUENZA QUAD (6MOS+) 2020-21 VAC 0.5 ML SYR IM ONE (08:00)
[2020-09-19] MEDS: CHOLECALCIFEROL (D3) 1,000 UNIT (25 MCG) TABLET PO SCH (09:05)
[2020-09-19] MEDS: LISINOPRIL 10 MG TABLET PO SCH (09:05)
[2020-09-19] MEDS: ASPIRIN 81 MG TABLET, ENT COATED PO SCH (09:05)
[2020-09-19] MEDS: ASCORBIC ACID 500 MG TABLET PO SCH ×2 (09:05→17:24)
[2020-09-19] MEDS: ZINC SULFATE 220 MG CAPSULE PO SCH (09:05)
[2020-09-19] MEDS: DEXAMETHASONE SOD PHOS INJ 10 MG/1 ML VIAL IV SCH (09:06)
[2020-09-19] MEDS: AZITHROMYCIN 250 MG TABLET PO SCH (09:06)
[2020-09-19] MEDS: METOPROLOL TARTRATE PF/INJ 5 MG/5 ML SDV IV PRN (09:07)
[2020-09-19] MEDS: ENOXAPARIN SODIUM INJ 40 MG/0.4 ML DISP.SYRIN SUBCUT SCH (09:07)
[2020-09-19] MEDS ORDERED: LISINOPRIL 10 MG TABLET PO ONE (11:15)
[2020-09-19] MEDS ORDERED: AMLODIPINE BESYLATE 5 MG TABLET PO PRN (15:30)
[2020-09-19] MEDS ORDERED: HYDRALAZINE HCL INJ/PF 20 MG/1 ML SDV IV PRN (17:16)
--- NOTE | 2020-09-19 17:18 | PDOC PROGRESS REPORT ---
Subjective Date:: 09/19/20 Subjective:: As per admitting physician's note ANA M ANNE is a 55 year old female with a past medical history significant for hypertension and obesity who tested COVID- 19 positive on 09/13/2020. She reports that she continues to run daily fevers (T-max 102), with worsening dyspnea at rest, nonproductive cough, pleuritic chest pain, and diarrhea. She also confirms loss of taste and smell and a sore throat. Evaluation in the emergency department revealed fever 100.1, hypertension (193/9 8) tachypnea (24) and SPO2 92% on room air. She was found to have iron deficiency anemia (hemoglobin 11.2; iron <10, ferritin 109), Elevated D-dimer 0.56, and elevated LDH (350) troponin was normal. EKG showed inverted T waves to the lateral leads. Chest x-ray reveals bilateral patchy infiltrates consistent with viral infection. 09/18/2020. No acute events overnight. Patient reporting significant improvement of her symptoms, diarrhea has resolved, shortness of breath is improving, currently on 3 L nasal cannula, denies any fever, chills, nausea, vomiting. If could be weaned off of oxygen today could potentially be discharged home tomorrow. 09/19/2020. No acute events overnight. Patient is off of oxygen and reporting significant improvement of her symptoms, unfortunately patient blood pressure is not optimized even though her BP medication have been increased, possible discharge home tomorrow. Reason For Visit: COVID PNEUMONIA Physical Exam Vital Signs: Temp Pulse Resp BP Pulse Ox 98.4 F 68 20 177/91 H 93 09/19/20 15:41 09/19/20 16:16 09/19/20 15:41 09/19/20 16:16 09/19/20 15:41 Intake & Output 09/18/20 09/19/20 09/20/20 06:59 06:59 06:59 Intake Total 581 2209 1000 Output Total 0 Balance 581 2209 1000 Weight 108.3 kg 107.5 kg General appearance: PRESENT: no acute distress, obese, well-developed, well-nourished Head exam: PRESENT: atraumatic, normocephalic Respiratory exam: PRESENT: clear to auscultation shauna. ABSENT: rales, rhonchi, wheezes Cardiovascular exam: PRESENT: RRR. ABSENT: diastolic murmur, rubs, systolic murmur GI/Abdominal exam: PRESENT: normal bowel sounds, soft. ABSENT: distended, guard ing, mass, organolmegaly, rebound, tenderness Neurological exam: PRESENT: alert, awake, oriented to person, oriented to place, oriented to time, oriented to situation, CN II-XII grossly intact. ABSENT: motor sensory deficit Results Laboratory Results: 09/19/20 04:51 09/19/20 04:51 09/19/20 09/19/20 09/19/20 04:51 04:51 04:51 WBC 6.5 RBC 4.52 Hgb 10.2 L Hct 31.5 L MCV 70 L MCH 22.5 L MCHC 32.3 RDW 15.6 H Plt Count 225 Seg Neutrophils % 76.0 Sodium 140.7 Potassium 4.1 Chloride 108 H Carbon Dioxide 26 Anion Gap 7 BUN 14 Creatinine 0.92 Est GFR ( Amer) > 60 Glucose 108 Calcium 8.8 Total Bilirubin 0.5 AST 26 Alkaline Phosphatase 40 Total Protein 6.2 L Albumin 3.2 L TSH 0.81 Free T4 1.10 09/17/20 09/17/20 09/17/20 10:04 18:55 22:11 Troponin I < 0.012 < 0.012 < 0.012 09/19/20 04:51 Troponin I < 0.012 Impressions: Chest X-Ray 09/17/20 10:14 IMPRESSION: Patchy bilateral basilar peripheral airspace disease worrisome for viral pneumonia Assessment and Plan - Diagnosis (1) Pneumonia due to COVID-19 virus Is this a current diagnosis for this admission?: Yes Plan: Complaining of loss of smell and loss of taste. No diarrhea or abdominal pain. SPO2 WNL on RA. No leukocytosis. COVID 19 positive 09/13/20 CXR on admission showed bilateral patchy infiltrates On admission D. dimer 0.56, LDH 350, Ferritin 109 Continue as needed nebs, p.o. antibiotics, pulmonary toileting, supplemental oxygen, zinc, vitamin D, vitamin C, and melatonin supplementation. Encourage pulmonary toilet. Isolation precautions. Convalescent plasma has been ordered but unfortunately will not be available . Does not meet criteria for remdesivir at this time as per previous physician notes. (2) Diarrhea due to COVID-19 Is this a current diagnosis for this admission?: Yes Plan: Resolved. Monitor volume status. Monitor electrolytes and replace as needed. (3) HTN (hypertension) Is this a current diagnosis for this admission?: Yes Plan: Uncontrolled. Likely worsened due to p.o. steroids for COVID-19 infection. Patient reports that she is on antihypertensive medications. She does not know the name of her medications. She recently moved and ran out several weeks ago. Increase lisinopril to 40 mg p.o. daily. Amlodipine 5 mg p.o. daily. As needed IV hydralazine. Outpatient PCP follow-up for readjustment of her medication. Patient may benefit from weight loss, diet and lifestyle modification. Patient will also benefit from outpatient nocturnal polysomnography to rule out obstructive sleep apnea. (4) Obese Is this a current diagnosis for this admission?: Yes Plan: BMI 40.7. Diet and lifestyle modification recommended. TSH, hemoglobin A1c WNL. Elevated lipid panel. Started on statins. May benefit from bariatric intervention. (5) Anemia Qualifiers: Anemia type: iron deficiency Is this a current diagnosis for this admission?: Yes Plan: Anemia panel reveals iron deficiency Iron <10, ferritin 109 Status post IV feraheme infusion. H&H stable. No sign of acute bleeding. (6) Dehydration Is this a current diagnosis for this admission?: Yes - Time Time Spent with patient: 25-34 minutes Medications reviewed and adjusted accordingly: Yes Anticipated Discharge Disposition: Home, Self Care Anticipated Discharge Timeframe: within 24 hours
[2020-09-19] MEDS ORDERED: LABETALOL HCL INJ 20 MG/4 ML DISP.SYRIN IV PRN (17:28)
--- NOTE | 2020-09-19 18:05 | EKG REPORT ---
SEVERITY:- ABNORMAL ECG - SINUS RHYTHM NONSPECIFIC T ABNORMALITIES, ANT-LAT LEADS : Confirmed by: Milagros Paredes 19-Sep-2020 18:04:59
--- NOTE | 2020-09-19 18:05 | EKG REPORT ---
SEVERITY:- ABNORMAL ECG - SINUS RHYTHM NONSPECIFIC T ABNORMALITIES, LATERAL LEADS : Confirmed by: Milagros Paredes 19-Sep-2020 18:05:05
[2020-09-19] MEDS: ATORVASTATIN CALCIUM 20 MG TABLET PO SCH (21:48)
[2020-09-19] MEDS: NIFEDIPINE 30 MG TAB.ER.24 PO SCH (21:49)
[2020-09-19] MEDS: MELATONIN 3 MG TABLET PO SCH (21:49)
[2020-09-20] MEDS: ENOXAPARIN SODIUM INJ 40 MG/0.4 ML DISP.SYRIN SUBCUT SCH (09:07)
[2020-09-20] MEDS: AZITHROMYCIN 250 MG TABLET PO SCH (09:08)
[2020-09-20] MEDS: CHOLECALCIFEROL (D3) 1,000 UNIT (25 MCG) TABLET PO SCH (09:08)
[2020-09-20] MEDS: LISINOPRIL 10 MG TABLET PO SCH (09:08)
[2020-09-20] MEDS: ASPIRIN 81 MG TABLET, ENT COATED PO SCH ×3 (09:08→10:39)
[2020-09-20] MEDS: ASCORBIC ACID 500 MG TABLET PO SCH ×2 (09:08→17:19)
[2020-09-20] MEDS: NIFEDIPINE 30 MG TAB.ER.24 PO SCH (09:08)
[2020-09-20] MEDS: ZINC SULFATE 220 MG CAPSULE PO SCH (09:08)
[2020-09-20] MEDS ORDERED: LISINOPRIL 10 MG TABLET PO ONE (13:30)
[2020-09-20 16:57] VITALS: BP 143/97
[2020-09-21] MEDS ORDERED: LISINOPRIL 10 MG TABLET PO SCH (10:00)
== END 2020-09-20 18:05 | disposition home or self-care (01) | DRG 177 ==
LOC: ER 09:41 → EH 12:27 → INTOOBSV 12:27 → 3N 20:45 → OBSVTOIN 09-19 16:31
PROVIDERS: ADMIT Internal Medicine; ATTEND Internal Medicine
PROC: XW13325 Transfusion of Convalescent Plasma (Nonautologous) into Peripheral Vein, Percutaneous Approach, New Technology Group 5 (ICD-10-PCS; principal; 2020-09-18)
DX: U07.1 COVID-19 (principal); J12.89 Other viral pneumonia; E86.0 Dehydration; E66.9 Obesity, unspecified; I10 Essential (primary) hypertension; Z66 Do not resuscitate; D50.9 Iron deficiency anemia, unspecified; Z87.891 Personal history of nicotine dependence; Z88.6 Allergy status to analgesic agent
CPT/HCPCS: 36415; 36430; 36600; 71045; 80048; 80053; 80061; 82728; 82803; 83036; 83540; 83615; 84439; 84443; 84484; 85025; 85379; 86850; 86900; 86901; 93005; 93010; 94667; 94668; 94799; 99285; G0378; J1100; J1650; J3490; J7030; J7050; Q0138